=== PATIENT | female | born 1990 | race Caucasian/White ===

== ENCOUNTER 2017-02-18 21:03 | Emergency (ER) | payer BC ==
[~2017-02-18] VITALS: Ht 167.6 cm; Wt 81.9 kg
[~2017-02-18 21:03] MED LIST: BCPILLS PO
[2017-02-18 21:05] VITALS: TEMP 36.9; Ht 167.6 cm; Wt 81.9 kg
[2017-02-18] MEDS ORDERED: MEDR150I (21:30)
[2017-02-18] MEDS ORDERED: METOCLOPRAMIDE HCL INJ 5 MG/ML 2 ML VIAL IV STA (21:48)
[2017-02-18] MEDS ORDERED: DiphenhydrAMINE HCL 50 MG/ML VIAL IV STA (21:48)
[2017-02-18] MEDS ORDERED: SODIUM CHLORIDE 0.9% 1000ML 1,000 ML IV STA (21:48)
[2017-02-18 22:10] LABS: BASO % 0.3 %; BASO ABS # 0.03 K/uL (0-0.2); COMPLETE YES; EOS % 3.4 %; HEMATOCRIT 41.9 % (37-47); IG% 0.2 %; LYMPH % 32.7 %; LYMPH ABS # 3.38 K/uL (1.2-3.4); MEAN CORPUSCULAR HEMOGLOBIN 26.5 pg (25-34); MEAN CORPUSCULAR HGB CONC 32.7 g/dl (32-36); MEAN PLATELET VOLUME 8.8 fL (7.4-10.4); MONO % 9.1 %; NEUT % 54.3 %; PLATELET COUNT 330 K/uL (130-400); RED BLOOD COUNT 5.17 M/uL (4.2-5.4); WHITE BLOOD COUNT 10.33 K/uL (4.8-10.8)
--- NOTE | 2017-02-18 22:19 | DIAGNOSTIC IMAGING REPORT ---
HEAD CT NONCONTRAST CT DOSE: 537.48 mGy.cm HISTORY: PERALTA, right side numb TECHNIQUE: Multiaxial CT images of the head were performed without the use of intravenous contrast. Comparison: None. Findings: The paranasal sinuses and mastoid air cells are clear. The calvarium and skull base are intact. The ventricles and sulci are within normal limits. There is no mass, hematoma, midline shift, or acute infarct. Impression: No acute intracranial abnormality. Electronically signed by: Pedro Mcrae M.D. 02/18/2017 10:18 PM Dictated Date/Time: 02/18/2017 10:17 PM
[2017-02-18 22:26] VITALS: O2SAT 99
[2017-02-18 22:28] LABS: ALT/SGPT 35 U/L (12-78); BLOOD UREA NITROGEN 13 mg/dl (7-18); BUN/CREATININE RATIO 13.5 (10-20); CARBON DIOXIDE 26 mmol/L (21-32); CHLORIDE 108 mmol/L (98-107); CREATININE 0.95 mg/dl (0.60-1.20); GLUCOSE 91 mg/dl (70-99); MAGNESIUM 2.4 mg/dl (1.8-2.4); POTASSIUM 3.8 mmol/L (3.5-5.1); SODIUM 141 mmol/L (136-145)
[2017-02-18 22:30] LABS: CALCIUM 9.3 mg/dl (8.5-10.1)
[2017-02-18 22:39] LABS: ALKALINE PHOSPHATASE 72 U/L (45-117); AST/SGOT 15 U/L (15-37)
[2017-02-18 23:16] LABS: LYME DISEASE AB IGG NEG (NEG)
[2017-02-18 23:17] LABS: LYME DISEASE AB IGM NEG (NEG)
[2017-02-18] MEDS ORDERED: ONDANSETRON HOME PACK 4MG OD TAB PO ONE (23:45)
[2017-02-18 23:53] VITALS: BP 104/67; PULSE 72; O2SAT 99
--- NOTE | 2017-02-19 00:06 | EMERGENCY ROOM VISIT NOTE ---
History First contact with patient: 21:40 Chief Complaint: NEURO SYMPTOMS Stated Complaint: CAN'T FEEL RIGHT SIDE OF BODY Nursing Triage Summary: pt reports she has been having a headach for two weeks, no hx of migraines. reports she went to pcp thursday and was given medications for migraines and was given sumatripitin and magnesium pills. 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 pt reports numbness and tingling began on right side of body approx 19:00 tonight. denies hx of medical problems. deneis vision problems. pt alert and oriented x4. breathing regularly and independently. pt rates head pain 7/10 History of Present Illness The patient is a 26 year old female who presents to the Emergency Room with complaints of headache for the past 2 weeks described as cramping and throbbing currently 7 out of 10. Patient also complains of right arm and leg tingling since 7 PM tonight. Patient denies chest pain, dyspnea, fever, chills, vision problems, dental pain, cold symptoms, neck stiffness, vomiting, diarrhea, abdominal pain, weakness. She saw her family doctor yesterday and was given Imitrex with no relief of symptoms. No history of migraines. Headache was not sudden in onset. Patient has been underneath more stress lately. Review of Systems See HPI for pertinent positives & negatives. A total of 10 systems reviewed and were otherwise negative. Past Medical/Surgical History Medical Problems: (1) Abdominal cramping affecting (2) Surgical Problems: (1) No significant past surgical history Social History Smoking Status: Current Every Day Smoker Alcohol Use: none Marital Status: Housing Status: lives with family Occupation Status: employed Current/Historical Medications Miscellaneous Medications Medroxyprogesterone Acetate (C (Depo-Provera Contraceptiv) Allergies Coded Allergies: No Known Allergies (Unverified , 02/18/17) Physical Exam Vital Signs Date Time Temp Pulse Resp B/P Pulse Ox O2 Delivery O2 Flow Rate FiO2 02/18/17 23:53 72 18 104/67 99 02/18/17 22:31 72 02/18/17 22:26 99 Room Air 02/18/17 22:26 67 18 115/68 98 Room Air 02/18/17 22:26 99 Room Air 02/18/17 21:05 36.9 90 18 130/86 100 Room Air Physical Exam VITALS: Vitals are noted on the nurse's note and reviewed by myself. Vital signs stable. GENERAL: Pleasant female following commands without difficulty, in no acute distress, nondiaphoretic, well-developed well-nourished. SKIN: The skin was without rashes, erythema, edema, or bruising. There is no tenting of the skin. Capillary reflex less than 2 seconds. HEAD: Normocephalic atraumatic. EARS: External auditory canals clear, tympanic membranes pearly mar without erythema or effusion bilaterally. EYES: Pupils equal round and reactive to light and accommodation. Conjunctivae without injection, sclerae without icterus. Extraocular movements intact. NOSE: Patent, turbinates without inflammation or discharge. No sinus tenderness. MOUTH: Mucous membranes moist. Pharynx without erythema or exudate. Uvula midline. Airway patent. Tongue does not deviate. NECK: Supple without nuchal rigidity. No lymphadenopathy. No thyromegaly. Cervical spine is nontender. No JVD. HEART: Regular rate and rhythm without murmurs gallops or rubs. LUNGS: Clear to auscultation bilaterally without wheezes, rales or rhonchi. No dullness to percussion. No retractions or accessory muscle use. ABDOMEN: Positive bowel sounds x 4. Normal tympanic percussion. Soft, nontender, without masses or organomegaly. [place] sign negative. No guarding or rebound tenderness. MUSCULOSKELETAL: No muscle atrophy, erythema, or edema noted. NEURO: Patient was alert and oriented to person place and time. Normal sensation to light and sharp touch in all other areas. No focal neurological deficits. Right occipital nerve outflow track tender to palpation easily reproducing symptoms. Cranial nerves II through XII grossly intact. No pronator drift. Patellar exam intact. 5 out of 5 strength throughout. Subjective decrease sensation to the entire right arm and leg. Medical Decision & Procedures Laboratory Results 02/18/17 21:59 Red Blood Count 5.17, Mean Corpuscular Volume 81.0, Mean Corpuscular Hemoglobin 26.5, Mean Corpuscular Hemoglobin Concent 32.7, Mean Platelet Volume 8.8, Neutrophils (%) (Auto) 54.3, Lymphocytes (%) (Auto) 32.7, Monocytes (%) (Auto) 9.1, Eosinophils (%) (Auto) 3.4, Basophils (%) (Auto) 0.3, Neutrophils # (Auto) 5.61, Lymphocytes # (Auto) 3.38, Monocytes # (Auto) 0.94, Eosinophils # (Auto) 0.35, Basophils # (Auto) 0.03 02/18/17 21:59 Test 02/18/17 21:59 White Blood Count 10.33 K/uL (4.8-10.8) Red Blood Count 5.17 M/uL (4.2-5.4) Hemoglobin 13.7 g/dL (12.0-16.0) Hematocrit 41.9 % (37-47) Mean Corpuscular Volume 81.0 fL (80-100) Mean Corpuscular Hemoglobin 26.5 pg (25-34) Mean Corpuscular Hemoglobin Concent 32.7 g/dl (32-36) Platelet Count 330 K/uL (130-400) Mean Platelet Volume 8.8 fL (7.4-10.4) Neutrophils (%) (Auto) 54.3 % Lymphocytes (%) (Auto) 32.7 % Monocytes (%) (Auto) 9.1 % Eosinophils (%) (Auto) 3.4 % Basophils (%) (Auto) 0.3 % Neutrophils # (Auto) 5.61 K/uL (1.4-6.5) Lymphocytes # (Auto) 3.38 K/uL (1.2-3.4) Monocytes # (Auto) 0.94 K/uL (0.11-0.59) Eosinophils # (Auto) 0.35 K/uL (0-0.5) Basophils # (Auto) 0.03 K/uL (0-0.2) RDW Standard Deviation 40.4 fL (36.4-46.3) RDW Coefficient of Variation 13.6 % (11.5-14.5) Immature Granulocyte % (Auto) 0.2 % Immature Granulocyte # (Auto) 0.02 K/uL (0.00-0.02) Anion Gap 7.0 mmol/L (3-11) Est Creatinine Clear Calc Drug Dose 96.8 ml/min Estimated GFR () 95.8 Estimated GFR (Non- 82.7 BUN/Creatinine Ratio 13.5 (10-20) Calcium Level 9.3 mg/dl (8.5-10.1) Magnesium Level 2.4 mg/dl (1.8-2.4) Total Bilirubin 0.3 mg/dl (0.2-1) Direct Bilirubin < 0.1 mg/dl (0-0.2) Aspartate Amino Transf (AST/SGOT) 15 U/L (15-37) Alanine Aminotransferase (ALT/SGPT) 35 U/L (12-78) Alkaline Phosphatase 72 U/L (45-117) Total Protein 7.4 gm/dl (6.4-8.2) Albumin 4.0 gm/dl (3.4-5.0) Thyroid Stimulating Hormone (TSH) 1.660 uIu/ml (0.300-4.500) Human Chorionic Gonadotropin, Qual NEG (NEG) Lyme Disease IgG Antibody NEG (NEG) Lyme Disease IgM Antibody NEG (NEG) Medications Administered Medications (Trade) Dose Ordered Sig/Elvira Route Start Time Stop Time Status Last Admin Dose Admin Metoclopramide HCl (Reglan Inj) 10 mg NOW STAT IV 02/18/17 21:48 02/18/17 21:50 DC 02/18/17 22:22 10 MG Diphenhydramine HCl 25 mg 25 mg NOW STAT IV 02/18/17 21:48 02/18/17 21:50 DC 02/18/17 22:23 25 MG Sodium Chloride (Nss 1000ml) 1,000 ml @ 999 mls/hr Q1H1M STAT IV 02/18/17 21:48 02/18/17 22:48 DC 02/18/17 22:22 999 MLS/HR Ondansetron HCl (ZOFRAN ODT 4MG Home Pack) 1 homepack UD ONCE PO 02/18/17 23:45 02/18/17 23:46 DC 02/18/17 23:49 1 HOMEPACK ED Course Prior records/ancillary studies reviewed. Additional history obtained from family. Triage Nursing notes reviewed. The patient's history was concerning for headache and right sided tingling. Differential diagnosis: Etiologies such as migraine headache, meningitis, occipital neuralgia, lymes, electrolyte abnormality, TSH, sinusitis, CO exposure, ICH, SAH, infection, tumor , headache, sinus thrombosis, arterial dissection, as well as others were entertained. Physical examination findings: As above. Non-focal. ER treatment provided: reglan, benadryl, NSS On reassessment the patient felt better. Diagnostics interpreted by me: The labs revealed no worrisome leukocytosis or left slight afternoon around. Euthyroid. Negative Lyme test Imaging studies: CT DOSE: 537.48 mGy.cm HISTORY: PERALTA, right side numb TECHNIQUE: Multiaxial CT images of the head were performed without the use of intravenous contrast. Comparison: None. Findings: The paranasal sinuses and mastoid air cells are clear. The calvarium and skull base are intact. The ventricles and sulci are within normal limits. There is no mass, hematoma, midline shift, or acute infarct. Impression: No acute intracranial abnormality. Electronically signed by: Pedro Mcrae M.D. This appears to be consistent with headache most likely is related to stress and tension and could be occipital neuralgia also. Patient had unremarkable workup as above. She felt much better to medicated as above. She had subjective decrease sensation to her right arm and leg but had no decrease in strength. She states she is feeling better. She is advised follow-up family care doctor this week for further evaluation and workup here in the ER sooner for headache, fevers, weakness, worsening signs or symptoms or as needed. Patient was offered MRI and declined. I feel this is reasonable. She is advised to decrease her stress.. By the evaluation outlined above emergent etiologies such as meningitis, sinusitis, CO exposure, ICH, SAH, infection, temporal arteritis, tumor, sinus thrombosis, arterial dissection, as well as others were deemed relatively unlikely. The pt informed about the findings as listed above. All questions were answered and pleased with the treatment. Return instructions were outlined and the patient was discharged in stable condition. Outpatient prescription management: carlos albertofran Referral: The patient was referred back to their primary care physician for follow-up in 2 to 3 days for a recheck of the current condition. Medical Decision as above Impression Primary Impression: Headache Additional Impression: Tingling in extremities Departure Information Dispostion Home / Self-Care Condition GOOD Forms WORK / SCHOOL INSTRUCTIONS, HOME CARE DOCUMENTATION FORM, IMPORTANT VISIT INFORMATION Patient Instructions Headaches Self Care, [facility], ED Headache Tension Additional Instructions DO NOT drive, drink alcohol, operate machinery, or perform dangerous activities today. You were given medications in the ER that can affect your ability to safely function or operate a vehicle. Rest today in a quiet, peaceful, dark environment and get a full 8-10 hrs of sleep tonight. Avoid loud noises, smoke/smoking, alcohol, bright lights, stress, or physical exertion today to minimize the chance the headache may return. Continue current medications. Ibuprofen(Motrin, Advil) may be used for fever or pain. Use 600mg every six hours as needed. Take with food. Avoid using more than 2400mg in a 24 hour period. Do not use 2400mg per day for more than three consecutive days without physician direction. Prolonged inappropriate use can lead to stomach upset or ulcers. (AND/OR) Acetaminophen(Tylenol) may be used for fever or pain. Use 1000mg every six hours as needed. Avoid using more than 3000mg in a 24 hour period. Return to the ER for passing out, worsening headache, vision problems, neck stiffness/pain, fevers, vomiting, worsening of your condition, or as needed. Follow up with your primary physician and/or a neurologist in 2-3 days for a recheck of your current condition. Problem Qualifiers Primary Impression: Headache Headache type: unspecified Headache chronicity pattern: unspecified pattern Intractability: not intractable Qualified Codes: R51 - Headache
[2017-02-19 00:11] LABS: PREG INTERNAL NEGATIVE QC NEG CLEAR BACKGROUND; PREG INTERNAL POSITIVE QC POS CONTROL LINE
== END 2017-02-18 23:53 | disposition home or self-care (01) ==
LOC: C.EDB 21:05 → C.EDC 23:53
DX: R51 Headache (principal); R20.2 Paresthesia of skin; F17.200 Nicotine dependence, unspecified, uncomplicated

== ENCOUNTER 2017-02-19 12:45 | Emergency (ER) | payer BC ==
[~2017-02-19] VITALS: Ht 167.6 cm; Wt 82.9 kg
[~2017-02-19 12:45] MED LIST changes: -BCPILLS PO; +MEDR150I
[2017-02-19 12:54] VITALS: TEMP 36.7; Ht 167.6 cm; Wt 82.9 kg
[2017-02-19 14:06] LABS: BASO % 0.3 %; BASO ABS # 0.03 K/uL (0-0.2); COMPLETE YES; EOS % 3.5 %; HEMATOCRIT 41.9 % (37-47); IG% 0.3 %; LYMPH % 27.3 %; LYMPH ABS # 2.36 K/uL (1.2-3.4); MEAN CELL VOLUME 81.4 fL (80-100); MEAN CORPUSCULAR HEMOGLOBIN 26.6 pg (25-34); MEAN CORPUSCULAR HGB CONC 32.7 g/dl (32-36); MONO % 10.1 %; NEUT % 58.5 %; PLATELET COUNT 323 K/uL (130-400); RED BLOOD COUNT 5.15 M/uL (4.2-5.4); WHITE BLOOD COUNT 8.65 K/uL (4.8-10.8)
[2017-02-19 14:28] LABS: BUN/CREATININE RATIO 7.7 (10-20); CALCIUM 8.9 mg/dl (8.5-10.1); CREATININE 0.86 mg/dl (0.60-1.20); POTASSIUM 4.6 mmol/L (3.5-5.1)
[2017-02-19] MEDS ORDERED: GADAVIST IV PRN (16:00)
--- NOTE | 2017-02-19 16:00 | DIAGNOSTIC IMAGING REPORT ---
NECK MRA HISTORY: Right-sided numbness. Possible stroke. TECHNIQUE: [id number] and gadolinium-enhanced MRA of the neck was performed both before and after the intravenous administration of contrast. All measurements were calculated based on NASCET criteria. The patient was administered 8 cc of intravenous Gadavist. COMPARISON STUDY: None. FINDINGS: The aortic arch and proximal great vessels are widely patent. There is no significant stenosis, occlusion, or dissection identified within the bilateral common carotid, internal carotid, or vertebral arteries. IMPRESSION: No significant stenosis, occlusion, or dissection identified within the carotid or vertebral arteries. Electronically signed by: Chaka Bennett M.D. 02/19/2017 3:59 PM Dictated Date/Time: 02/19/2017 3:57 PM
--- NOTE | 2017-02-19 16:02 | DIAGNOSTIC IMAGING REPORT ---
Brain MRA HISTORY: eval for VASC DISEASE TECHNIQUE: 3-D [id number] MRA of the brain was performed without contrast. COMPARISON STUDY: None. FINDINGS: Visualized intracranial internal carotid arteries, distal vertebral arteries, and basilar artery are widely patent. There is no significant stenosis, occlusion, or aneurysm seen within the bilateral ACAs, MCAs, or manufacturing controller. IMPRESSION: No significant stenosis, occlusion, or aneurysm within the [place]. Electronically signed by: Pedro Mcrae M.D. 02/19/2017 4:00 PM Dictated Date/Time: 02/19/2017 4:00 PM
--- NOTE | 2017-02-19 16:03 | DIAGNOSTIC IMAGING REPORT ---
MRI OF THE BRAIN WITHOUT AND WITH IV CONTRAST CLINICAL HISTORY: Right-sided numbness and tingling. COMPARISON STUDY: Head CT February 18, 2017. TECHNIQUE: Utilizing a 1.5 Josephine magnet and dedicated coil, multiplanar, multiecho imaging of the brain was performed pre and postcontrast administration. IV administration of 8 mL of Gadavist contrast was uneventful. FINDINGS: There are no areas of restricted diffusion. No acute intracranial hemorrhage, midline shift or mass effect is present. Brain volume is normal. Ventricular system is normal. Basilar cisterns are patent. There are no extra-axial collections. Flow-voids for the major intracranial vessels are present. No intracranial mass or pathologic enhancement is present. Calvarial signal is maintained. Orbits are unremarkable. There is mild mucosal thickening of the left sphenoid sinus. There are no areas of signal abnormality to suggest demyelinating disease. IMPRESSION: 1. No acute intracranial findings. 2. No intracranial mass or pathologic enhancement. 3. Mild mucosal thickening of the left sphenoid sinus. Electronically signed by: Son Randhawa M.D. 02/19/2017 4:01 PM Dictated Date/Time: 02/19/2017 3:57 PM
[2017-02-19 17:14] VITALS: BP 123/89; PULSE 69; O2SAT 100
--- NOTE | 2017-02-19 18:52 | EMERGENCY ROOM VISIT NOTE ---
History Report prepared by Brianna: Susi Tucker Under the Supervision of: Dr. Ac Stallworth M.D. First contact with patient: 13:08 Chief Complaint: OTHER COMPLAINT Stated Complaint: NUMBNESS History of Present Illness The patient is a 26 year old female who presents to the Emergency Room with complaints of an episode on numbness that started last night. She reports that she came to the ED last night because she was completely numb on the right side of her body. She states they did a CT that came back negative. The patient states that it never went away, but that this morning it started to move to the left side of her face. She notes that she can only feel half her tongue and that the right side is much worse. She states that when she closes her left eye , her right is blurry. The patient complains of neck pain and headaches described as "head cramps." The patient notes that she was treated for migraines two weeks ago. She denies any trauma, fevers, chest pain, ear pain, shortness of breath, and abdominal pain. She states that she called a neurologist to make an appointment and that she was told she should come to the ED to get an MRI to rule out a pinched nerve. The patient notes that she has never had these symptoms before. Source of History: patient, spouse/significant other Onset: last night Position: other (global) Quality: other (global) Timing: other (episode) Associated Symptoms: + headache, + neck pain, No SOB, No abdominal pain, No chest pain, No fevers Note: The patient complains of changes in her vision. The patient denies any trauma and ear pain. Review of Systems See HPI for pertinent positives & negatives. A total of 10 systems reviewed and were otherwise negative. Past Medical & Surgical Medical Problems: (1) Abdominal cramping affecting (2) Surgical Problems: (1) No significant past surgical history Old medical records were reviewed. Nurse's notes were reviewed and I agree with. Family History No significant family history Social History Smoking Status: Current Every Day Smoker Alcohol Use: none Marital Status: Housing Status: lives with family Occupation Status: employed Current/Historical Medications Miscellaneous Medications Medroxyprogesterone Acetate (C (Depo-Provera Contraceptiv) Allergies Coded Allergies: No Known Allergies (Unverified , 02/18/17) Physical Exam Vital Signs Date Time Temp Pulse Resp B/P Pulse Ox O2 Delivery O2 Flow Rate FiO2 02/19/17 17:14 69 16 123/89 100 Room Air 02/19/17 16:15 76 18 119/75 98 Room Air 02/19/17 14:40 72 16 125/92 99 Room Air 02/19/17 12:54 36.7 91 18 134/83 100 Room Air Physical Exam General: Well developed well nourished in no acute distress, breathing comfortably on room air. Normal speech. Non-ill appearing, intermittently teary eyes, young female and no acute distress. HEENT: Normal cephalic atraumatic. Pupils are equal round and reactive to light. Extraocular movements are intact. Oropharynx is pink with moist mucous membranes. No swelling of the mouth lips or tongue. No facial droop or assymetry. Normal tympanic membranes. Neck: Supple with a midline trachea. No meningeal signs or stiffness, no JVD or bruits. No Stridor. Mild tenderness in posterior right neck. No redness or warmth. Chest: Clear to auscultation bilaterally. No wheezes or rhonchi. No increased work of breathing. Heart: regular rate and rhythm. Abdomen: Soft nontender, nondistended without rebound guarding or rigidity. Extremities: No cyanosis clubbing or edema. No calf tenderness or assymetry Spine/Back. Non tender to palpation. No CVA tenderness Skin: Good turgor without rashes. Neurologic exam: Cranial nerves two through 12 are intact. Motor and sensation are intact and symmetrical throughout. Normal gait. Negative Romberg. Difficulty with heel to toe gait, subjective decreased sensation on right arm , right leg, and face. Intact reflexes. Medical Decision & Procedures ER Provider Diagnostic Interpretation: Radiology results as stated below per my review and radiologist interpretation: MRI OF THE BRAIN WITHOUT AND WITH IV CONTRAST CLINICAL HISTORY: Right-sided numbness and tingling. COMPARISON STUDY: Head CT February 18, 2017. TECHNIQUE: Utilizing a 1.5 Josephine magnet and dedicated coil, multiplanar, multiecho imaging of the brain was performed pre and postcontrast administration. IV administration of 8 mL of Gadavist contrast was uneventful. FINDINGS: There are no areas of restricted diffusion. No acute intracranial hemorrhage, midline shift or mass effect is present. Brain volume is normal. Ventricular system is normal. Basilar cisterns are patent. There are no extra-axial collections. Flow-voids for the major intracranial vessels are present. No intracranial mass or pathologic enhancement is present. Calvarial signal is maintained. Orbits are unremarkable. There is mild mucosal thickening of the left sphenoid sinus. There are no areas of signal abnormality to suggest demyelinating disease. IMPRESSION: 1. No acute intracranial findings. 2. No intracranial mass or pathologic enhancement. 3. Mild mucosal thickening of the left sphenoid sinus. Electronically signed by: Son Randhawa M.D. 02/19/2017 4:01 PM Dictated Date/Time: 02/19/2017 3:57 PM Brain MRA HISTORY: eval for VASC DISEASE TECHNIQUE: 3-D [id number] MRA of the brain was performed without contrast. COMPARISON STUDY: None. FINDINGS: Visualized intracranial internal carotid arteries, distal vertebral arteries, and basilar artery are widely patent. There is no significant stenosis, occlusion, or aneurysm seen within the bilateral ACAs, MCAs, or heat transfer technician. IMPRESSION: No significant stenosis, occlusion, or aneurysm within the [place]. Electronically signed by: Pedro Mcrae M.D. 02/19/2017 4:00 PM Dictated Date/Time: 02/19/2017 4:00 PM NECK MRA HISTORY: Right-sided numbness. Possible stroke. TECHNIQUE: Usuc-uo-scviwn and gadolinium-enhanced MRA of the neck was performed both before and after the intravenous administration of contrast. All measurements were calculated based on NASCET criteria. The patient was administered 8 cc of intravenous Gadavist. COMPARISON STUDY: None. FINDINGS: The aortic arch and proximal great vessels are widely patent. There is no significant stenosis, occlusion, or dissection identified within the bilateral common carotid, internal carotid, or vertebral arteries. IMPRESSION: No significant stenosis, occlusion, or dissection identified within the carotid or vertebral arteries. Electronically signed by: Cahka Bennett M.D. 02/19/2017 3:59 PM Dictated Date/Time: 02/19/2017 3:57 PM Laboratory Results 02/19/17 13:50 Red Blood Count 5.15, Mean Corpuscular Volume 81.4, Mean Corpuscular Hemoglobin 26.6, Mean Corpuscular Hemoglobin Concent 32.7, Mean Platelet Volume 9.0, Neutrophils (%) (Auto) 58.5, Lymphocytes (%) (Auto) 27.3, Monocytes (%) (Auto) 10.1, Eosinophils (%) (Auto) 3.5, Basophils (%) (Auto) 0.3, Neutrophils # (Auto ) 5.06, Lymphocytes # (Auto) 2.36, Monocytes # (Auto) 0.87, Eosinophils # (Auto ) 0.30, Basophils # (Auto) 0.03 02/19/17 13:50 Test 02/19/17 13:50 White Blood Count 8.65 K/uL (4.8-10.8) Red Blood Count 5.15 M/uL (4.2-5.4) Hemoglobin 13.7 g/dL (12.0-16.0) Hematocrit 41.9 % (37-47) Mean Corpuscular Volume 81.4 fL (80-100) Mean Corpuscular Hemoglobin 26.6 pg (25-34) Mean Corpuscular Hemoglobin Concent 32.7 g/dl (32-36) Platelet Count 323 K/uL (130-400) Mean Platelet Volume 9.0 fL (7.4-10.4) Neutrophils (%) (Auto) 58.5 % Lymphocytes (%) (Auto) 27.3 % Monocytes (%) (Auto) 10.1 % Eosinophils (%) (Auto) 3.5 % Basophils (%) (Auto) 0.3 % Neutrophils # (Auto) 5.06 K/uL (1.4-6.5) Lymphocytes # (Auto) 2.36 K/uL (1.2-3.4) Monocytes # (Auto) 0.87 K/uL (0.11-0.59) Eosinophils # (Auto) 0.30 K/uL (0-0.5) Basophils # (Auto) 0.03 K/uL (0-0.2) RDW Standard Deviation 41.1 fL (36.4-46.3) RDW Coefficient of Variation 13.7 % (11.5-14.5) Immature Granulocyte % (Auto) 0.3 % Immature Granulocyte # (Auto) 0.03 K/uL (0.00-0.02) Anion Gap 5.0 mmol/L (3-11) Est Creatinine Clear Calc Drug Dose 107.5 ml/min Estimated GFR () 108.1 Estimated GFR (Non- 93.2 BUN/Creatinine Ratio 7.7 (10-20) Calcium Level 8.9 mg/dl (8.5-10.1) Laboratory studies as stated above per my review. ED Course 1308: Past medical records reviewed. The patient was evaluated in room B4, and a complete history and physical examination were performed. 1321: I discussed the patient's case with neurology to determine an appropriate course of action. They agree with doing an MRI and suggest doing an MRA as well. 1411: I reevaluated the patient and she is resting comfortably. She is waiting for an MRI. 1703: Upon reevaluation, the patient is resting comfortably. I discussed the results and treatment plan with her. The patient verbalized agreement of the treatment plan. The patient was discharged home. Medical Decision Differential diagnoses include Multiple Sclerosis, intracranial infection, anxiety electrolyte or metabolic abnormality This patient comes in as described above. She comes in after having continuing tingling sensation in her right face hand and leg also now it's on the left side her face in addition to the right. She has a normal neurologic exam with exception of some subjective numbness in these areas. She is nontoxic and non- ill-appearing. She has nothing to suggest meningitis or encephalitis. She has negative Kernig and Brudzinski signs. She has intact reflexes. She has no headache today. She is afebrile. She has no acute electrode or metabolic abdomen abnormalities. I did discuss the case with Dr. Gorman, the on-call neurologist. She recommends doing an MRI of her brain as well as MRA of the brain and neck. There were no acute abnormalities seen on the MRI/MRAs. She will be discharged home and was encouraged follow-up with her regular doctor return to ER if: worsening of symptoms, any new problems or concerns. Consults Time Called: [id number] Consulting Physician: [employer] Returned Call: 1321 I discussed the patient's case with neurology to determine an appropriate course of action. They agree with doing an MRI and suggest doing an MRA as well. Impression Primary Impression: Tingling of right upper extremity and right side of face Scribe Attestation The scribe's documentation has been prepared under my direction and personally reviewed by me in its entirety. I confirm that the note above accurately reflects all work, treatment, procedures, and medical decision making performed by me. Departure Information Dispostion Home / Self-Care Referrals No Doctor, Assigned (PCP) Forms HOME CARE DOCUMENTATION FORM, IMPORTANT VISIT INFORMATION, WORK / SCHOOL INSTRUCTIONS Patient Instructions My [facility] [employer] Additional Instructions Rest Drink plenty of fluids Return if: Worsening of symptoms, fever or chills, weakness, any new problems or concerns Follow-up with your doctor tomorrow for recheck
== END 2017-02-19 17:14 | disposition home or self-care (01) ==
LOC: C.EDB 12:46
DX: R20.2 Paresthesia of skin (principal); F17.200 Nicotine dependence, unspecified, uncomplicated

== ENCOUNTER 2019-01-17 21:07 | Observation (INO) ==
[2019-01-17] MEDS ORDERED: ONDANSETRON INJ 2 MG/ML 2 ML VIAL IV STA (21:30)
[2019-01-17] MEDS ORDERED: SODIUM CHLORIDE 0.9% 1000ML 1,000 ML IV SCH (21:30)
[2019-01-17] MEDS: MoRPHine SULFATE 4 MG/ML 1 ML CARP\\VIAL IV PRN ×4 (21:36→23:46)
[2019-01-17 21:40] LABS: Basophils # (auto) 0.02 K/uL (0-0.2); Basophils % (auto) 0.4 %; Eosinophils # (auto) 0.09 K/uL (0-0.5); Hematocrit (blood only) 38.9 % (37-47); Hemoglobin 13.8 g/dL (12.0-16.0); Lymphocytes # (auto) 1.75 K/uL (1.2-3.4); Mean Corpuscular Hgb Conc 35.5 g/dL (32-36); Mean Corpuscular Volume 80.4 fL (80-100); Mean Platelet Volume 9.4 fL (7.4-10.4); Monocytes # (auto) 0.63 K/uL (0.11-0.59); Monocytes % (auto) 13.7 %; Neutrophils # (auto) 2.11 K/uL (1.4-6.5); Neutrophils % (auto) 45.9 %; Platelet Count 261 K/uL (130-400); RDW Coefficient of Variation 13.9 % (11.5-14.5); Red Blood Count 4.84 M/uL (4.2-5.4)
--- NOTE | 2019-01-17 21:49 | XRay Report ---
SINGLE VIEW CHEST CLINICAL HISTORY: Atypical chest pain. Generalized abdominal pain. Diarrhea. FINDINGS: An AP, portable, upright chest radiograph is compared to study dated 05/01/2018. The examina tion is degraded by portable technique and patient rotation. The cardiomediastinal silhouette is unr emarkable. The lungs and pleural spaces are clear. No pneumothorax is seen. The bony thorax is grossl y intact. IMPRESSION: No active disease in the chest. Electronically signed by: Mariano Amado M.D. 01/17/2019 9:46 PM
[2019-01-17 21:57] LABS: Albumin Level 3.8 gm/dl (3.4-5.0); BUN Creatinine Ratio 14.6 (10-20); C Reactive Protein 2.1 mg/dl (0-0.29); Calcium 8.8 mg/dl (8.5-10.1); Creatinine Clr Calc Pharmacy 92.4 ml/min; Est GFR (African American) 102.2; Est GFR (Non-African American) 88.2; Potassium 3.5 mmol/L (3.5-5.1)
[2019-01-17 21:59] LABS: Pregnancy Test, Serum Negative (Negative)
[2019-01-17 22:00] LABS: Bilirubin,Total 0.3 mg/dl (0.2-1); Globulin 3.6 gm/dl (2.5-4.0); Total Protein 7.4 gm/dl (6.4-8.2)
[2019-01-17] MEDS ORDERED: IOVERSOL 100ml IV PRN (22:28)
--- NOTE | 2019-01-17 22:41 | CT Scan Report ---
CT SCAN OF THE ABDOMEN AND PELVIS WITH IV CONTRAST CLINICAL HISTORY: Pelvic pain. COMPARISON STUDY: Abdominal CT dated 04/03/2015. TECHNIQUE: Following the IV administration of 90 cc of Optiray 320, CT scan of the abdomen and pelvi s is performed from the lung bases to the proximal femora. Images are reviewed in the axial, sagittal , and coronal planes. IV contrast was administered without complication. A dose lowering technique wa s utilized adhering to the principles of ALARA. CT DOSE: 336.54 mGy.cm FINDINGS: Lung bases: The heart is normal in size and without pericardial effusion. The lung bases are clear no ting dependent atelectasis. Liver: The contrast-enhanced liver is normal in size, contour, and attenuation. There is no intrahepa tic biliary ductal dilatation. The hepatic veins and portal veins are patent. Gallbladder: Unremarkable. Spleen: Normal in size and attenuation. Pancreas: Unremarkable. Adrenal glands: Unremarkable. Kidneys: The contrast enhanced kidneys are normal in size and without hydronephrosis. The kidneys enh ance symmetrically. Abdominal vasculature: The abdominal aorta is normal in course and caliber. Bowel: No bowel obstruction is identified. There is marked gaseous distention of the colon. Liquid st ool is noted in the right colon. Pneumatosis intestinalis is noted involving the right colon. There i s no mesenteric or portal venous gas identified. No significant colonic wall thickening is observed. Mild pericolonic stranding is noted. The appendix is well-visualized and normal. Peritoneum: There is no intraperitoneal free air or abdominal ascites. There is a fat-containing umbi lical hernia. Lymphadenopathy: None. Pelvic viscera: The bladder, uterus, and adnexa are normal as imaged. Skeletal structures: No lytic or blastic lesions are seen. IMPRESSION: 1. No bowel obstruction is seen. 2. There is marked gaseous distention of the colon, with no obstructing lesion identified. There is c onstipation and liquid stool seen in the right colon, as well as mild pericolic stranding. A nonspeci fic colitis could have this appearance. 3. There is mild pneumatosis intestinalis of the right colon. Pneumatosis can be a benign finding or could potentially be seen in the setting of ischemia. Clinical correlation will be essential. 4. The mesenteric vessels appear widely patent. 5 There is no intraperitoneal free air, portal venous or mesenteric venous gas, or significant coloni c wall thickening. 6. Additional findings as above. Electronically signed by: Mariano Amado M.D. 01/17/2019 10:39 PM
[2019-01-17] MEDS ORDERED: SODIUM CHLORIDE 0.9% 1000ML 1,000 ML IV ONE (22:53)
--- NOTE | 2019-01-17 23:15 | Emergency Department Note ---
Entered by Becky Fournier acting as a scribe for Luis Fernando Denton DO History of Present Illness General Chief complaint: Abdominal Pain Stated complaint: AB PAIN, DIARRHEA, VOMITING Source: patient Mode of arrival: EMS Limitations: no limitations History of Present Illness Provider complaint: abdominal pain Onset (ago): hour(s) (today) Location: abdomen Pain Consistency: + other (persistent) Quality: + other (labor-like) Associated symptoms: + nausea/vomiting and + other (black diarrhea); no fever/chills Treatments prior to arrival: other (pepto-bismol) The patient is a 28 year old female who presents to the Emergency Room with c omplaints of a persistent abdominal pain that began this morning. The patient describes the pain as labor-like and denies any similar pain in the past. She states that the pain is located in her lower abdomen. She reports that she has been nauseous, vomiting and having multiple episodes of black diarrhea for the past 3 days. She denies any significant past medical or surgical history. She notes that the pain is exacerbated by deep breaths. She states that her last normal bowel movement was last week. She reports that her daughter is sick but not with similar symptoms. The patient reports that she last took Pepto-Bismol this morning. Home Medications Home Medications Medication Instructions Recorded Confirmed Type No Known Home Medications 01/17/19 01/17/19 History Allergies Allergy/AdvReac Type Severity Reaction Status Date / Time No Known Allergies Allergy Verified 01/17/19 21:50 Past Med/Surg History Medical History No significant past medical history Anxiety Migraine PID (acute pelvic inflammatory disease) (Resolved) (Resolved 03/03/14) Ovarian cyst Surgical History No significant past surgical history History of dental surgery Family History Father Hx of gastroesophageal reflux (GERD) Mother Hx of gastroesophageal reflux (GERD) Social History Communication Ability: Effective Beliefs That Will Affect Care: None Current Living Situation: Spouse Feels Safe at Home: Yes Safety Concerns: Feels Safe At This Time Smoking Status: Current every day smoker Hx Alcohol Use: No Hx Substance Use: No Review of Systems See HPI for pertinent positives & negatives. and A total of 10 systems reviewed and were otherwise negative Physical Exam Vital Signs Vital Signs - 24 hr 01/17/19 21:27 01/17/19 21:34 01/17/19 23:05 Temperature 37 C Temperature Source Oral Sepsis Recent Fever Within 48 Hours No Sepsis New/Unexplained Change in Mental Status No Sepsis Action Taken by Nursing No Action Required Pulse Rate 83 Pulse Rate [Right Finger] 78 Respiratory Rate 18 18 Respiratory Effort / Characteristics Non-Labored Respiratory Depth Normal Respiratory Pattern Blood Pressure 143/92 H Blood Pressure [Left Arm] Blood Pressure [Right Arm] 133/96 Blood Pressure Mean 109 Blood Pressure Mean [Left Arm] Blood Pressure Mean [Right Arm] 108 Blood Pressure Position [Left Arm] Blood Pressure Position [Right Arm] Pulse Oximetry 98 97 96 Oxygen Delivery Method Room Air Room Air Room Air 01/18/19 00:50 01/18/19 01:43 01/18/19 07:54 Temperature 36.4 C L 36.8 C Temperature Source Oral Oral Sepsis Recent Fever Within 48 Hours Sepsis New/Unexplained Change in Mental Status Sepsis Action Taken by Nursing Pulse Rate Pulse Rate [Right Finger] 69 71 67 Respiratory Rate 16 18 20 Respiratory Effort / Characteristics Non-Labored Respiratory Depth Normal Respiratory Pattern Regular Blood Pressure Blood Pressure [Left Arm] 122/74 128/77 Blood Pressure [Right Arm] 140/91 Blood Pressure Mean Blood Pressure Mean [Left Arm] 90 94 Blood Pressure Mean [Right Arm] 107 Blood Pressure Position [Left Arm] Right Lateral Lying Blood Pressure Position [Right Arm] Pulse Oximetry 96 96 95 Oxygen Delivery Method Room Air Room Air Room Air 01/18/19 16:00 Temperature 37.0 C Temperature Source Oral Sepsis Recent Fever Within 48 Hours Sepsis New/Unexplained Change in Mental Status Sepsis Action Taken by Nursing Pulse Rate Pulse Rate [Right Finger] 74 Respiratory Rate 18 Respiratory Effort / Characteristics Respiratory Depth Respiratory Pattern Blood Pressure Blood Pressure [Left Arm] Blood Pressure [Right Arm] 102/66 Blood Pressure Mean Blood Pressure Mean [Left Arm] Blood Pressure Mean [Right Arm] 78 Blood Pressure Position [Left Arm] Blood Pressure Position [Right Arm] Lying Pulse Oximetry 96 Oxygen Delivery Method Room Air GENERAL: Patient is awake, alert, and very anxious appearing walking around the room. EYES: The conjunctivae are clear. The pupils are round and reactive. EARS, NOSE, MOUTH AND THROAT: The nose is without any evidence of any deformity. Mucous membranes are moist.Tongue is midline NECK: The neck is nontender and supple. RESPIRATORY: Normal respiratory effort is noted. There is no evidence of wheezing rhonchi or rales to auscultation. CARDIOVASCULAR: Regular rate and rhythm noted. There no murmurs rubs or gallops normal S1 normal S2 GASTROINTESTINAL: The abdomen is soft. Bowel sounds are present in all quadran ts. Abdomen is diffusely tender, no guarding or rigidity. RECTAL: Black stool which was heme negative. MUSCULOSKELETAL/EXTREMITIES: There is no evidence of gross deformity. Full range of motion is noted in the hips and shoulders. SKIN: There is no obvious evidence of any rash. There are no petechiae, pallor or cyanosis noted. NEUROLOGIC: Patient is awake alert and oriented x3. [Strength is symmetric. Patellar reflexes are 2+ bilaterally.] Course 2125: The patient was evaluated in room A9B, and a complete history and physical examination were performed. 2252: I reviewed the patient's case with Dr. Rodriguez [facility] Hospitalist. He will evaluate the patient for further management. Administered Medications Dextrose/Sodium Chloride (D5w And Nss) 1,000 mls @ 125 mls/hr IV .Q8H JEANNA Stop: 02/17/19 01:42 Last Admin: 01/18/19 16:57 Dose: 125 mls/hr Documented by: [id number] Infusion: 01/18/19 16:56 Dose: 125 mls/hr Documented by: [id number] Admin: 01/18/19 08:56 Dose: 125 mls/hr Documented by: [id number] Infusion: 01/18/19 08:56 Dose: 125 mls/hr Documented by: [id number] Admin: 01/18/19 02:05 Dose: 125 mls/hr Documented by: [id number] Famotidine 20 mg/ Syringe 5 mls @ 2.5 mls/min IV BID JEANNA Stop: 02/17/19 08:59 Last Admin: 01/18/19 08:56 Dose: 2.5 mls/min Documented by: [id number] Morphine Sulfate (Morphine Sulfate) 3 mg IV Q3H PRN PRN Reason: Pain Stop: 02/01/19 01:42 Last Admin: 01/18/19 18:00 Dose: 3 mg Documented by: [id number] Admin: 01/18/19 13:50 Dose: 3 mg Documented by: [id number] Admin: 01/18/19 09:53 Dose: 3 mg Documented by: [id number] Admin: 01/18/19 05:45 Dose: 3 mg Documented by: [id number] Ondansetron HCl (Zofran) 4 mg IV Q6H PRN PRN Reason: Nausea Stop: 02/17/19 01:42 Last Admin: 01/18/19 09:53 Dose: 4 mg Documented by: [id number] Raspberry (Raspberry) 5 ml PO Q6 JEANNA Stop: 02/01/19 05:59 Last Admin: 01/18/19 18:22 Dose: 5 ml Documented by: [id number] Admin: 01/18/19 11:54 Dose: 5 ml Documented by: [id number] Admin: 01/18/19 05:46 Dose: 5 ml Documented by: [id number] Vancomycin HCl (Vancomycin Hcl) 125 mg PO Q6 JEANNA Stop: 01/28/19 05:59 Last Admin: 01/18/19 18:22 Dose: 125 mg Documented by: [id number] Admin: 01/18/19 11:54 Dose: 125 mg Documented by: [id number] Admin: 01/18/19 05:46 Dose: 125 mg Documented by: [id number] Discontinued Medications Sodium Chloride (Nss 1000ml) 1,000 mls @ 999 mls/hr IV .Q1H1M JEANNA Stop: 01/17/19 22:30 Last Infusion: 01/17/19 22:47 Dose: 0 mls/hr Documented by: [id number] Admin: 01/17/19 21:36 Dose: 999 mls/hr Documented by: [id number] Sodium Chloride (Nss 1000ml) 1,000 mls @ 999 mls/hr IV .Q1H1M ONE Stop: 01/17/19 23:53 Last Infusion: 01/18/19 00:17 Dose: 0 mls/hr Documented by: [id number] Admin: 01/17/19 23:04 Dose: 999 mls/hr Documented by: [id number] Potassium Chloride (K Tono / Wtr) 10 meq in 100 mls @ 100 mls/hr IV Q1H JEANNA Stop: 01/18/19 08:29 Last Infusion: 01/18/19 08:30 Dose: 0 mls/hr Documented by: [id number] Admin: 01/18/19 07:29 Dose: 100 mls/hr Documented by: [id number] Infusion: 01/18/19 07:29 Dose: 100 mls/hr Documented by: [id number] Admin: 01/18/19 06:30 Dose: 100 mls/hr Documented by: [id number] Ioversol (Optiray 320 100ml) 90 ml IV ONCE PRN PRN Reason: Interaction Checking Stop: 01/21/19 22:27 Last Admin: 01/17/19 22:29 Dose: 90 ml Documented by: [id number] Morphine Sulfate (Morphine Sulfate) 4 mg IV Q15M PRN PRN Reason: Pain Stop: 01/31/19 21:29 Last Admin: 01/17/19 23:46 Dose: 4 mg Documented by: [id number] Admin: 01/17/19 23:03 Dose: 4 mg Documented by: [id number] Admin: 01/17/19 22:08 Dose: 4 mg Documented by: [id number] Admin: 01/17/19 21:36 Dose: 4 mg Documented by: [id number] Ondansetron HCl (Zofran) 4 mg IV NOW STA Stop: 01/17/19 21:31 Last Admin: 01/17/19 21:35 Dose: 4 mg Documented by: [id number] Potassium Chloride (Klor-Con M20) 40 meq PO ONE ONE Stop: 01/18/19 06:31 Last Admin: 01/18/19 06:30 Dose: 40 meq Documented by: [id number] Medical Decision Making Differential Diagnosis Differential diagnosis includes: gastritis, peptic ulcer disease, GERD, gallbladder disease, pancreatitis, small bowel obstruction, acute coronary syndrome, pericarditis, ischemic bowel, irritable bowel disease, irritable bowel syndrome, appendicitis, diverticulitis, malignancy, hernia, UTI, torsion, /ectopic , perforation, trauma, and kidney stones. Home Medications Current Medication List: was personally reviewed by me Laboratory Data Attestation: I reviewed the patient's lab results. Result diagrams: 01/18/19 05:23 01/18/19 05:23 Lab Results 01/17/19 01/17/19 01/17/19 Range/Units 21:13 21:13 21:13 WBC 4.60 L (4.8-10.8) K/uL RBC 4.84 (4.2-5.4) M/uL Hgb 13.8 (12.0-16.0) g/dL Hct 38.9 (37-47) % MCV 80.4 (80-100) fL MCH 28.5 (25-34) pg MCHC 35.5 (32-36) g/dL RDW Std Deviation 41.0 (36.4-46.3) fL RDW Coeff of Anne-Marie 13.9 (11.5-14.5) % Plt Count 261 (130-400) K/uL MPV 9.4 (7.4-10.4) fL Immature Gran % (Auto) 0.0 % Neut % (Auto) 45.9 % Lymph % (Auto) 38.0 % La[place] % (Auto) 13.7 % Eos % (Auto) 2.0 % Baso % (Auto) 0.4 % Immature Gran # (Auto) 0.00 (0.00-0.02) K/uL Neut # (Auto) 2.11 (1.4-6.5) K/uL Lymph # (Auto) 1.75 (1.2-3.4) K/uL [place] # (Auto) 0.63 H (0.11-0.59) K/uL Eos # (Auto) 0.09 (0-0.5) K/uL Baso # (Auto) 0.02 (0-0.2) K/uL ESR 15 (0-21) mm/hr Sodium 142 (136-145) mmol/L Potassium 3.5 (3.5-5.1) mmol/L Chloride 111 H (98-107) mmol/L Carbon Dioxide 23 (21-32) mmol/L Anion Gap 7.0 (3-11) BUN 13 (7-18) mg/dl Creatinine 0.89 (0.6-1.2) mg/dl Est Cr Clr Drug Dosing 92.4 ml/min Est GFR ( Amer) 102.2 Est GFR (Non-Af Amer) 88.2 BUN/Creatinine Ratio 14.6 (10-20) Glucose 100 H (70-99) mg/dl Lactate (0.4-2.0) mmol/L Calcium 8.8 (8.5-10.1) mg/dl Magnesium (1.8-2.4) mg/dl Total Bilirubin 0.3 (0.2-1) mg/dl AST 23 (15-37) U/L ALT 32 (12-78) U/L Alkaline Phosphatase 57 (45-117) U/L C-Reactive Protein 2.10 H (0-0.29) mg/dl Total Protein 7.4 (6.4-8.2) gm/dl Albumin 3.8 (3.4-5.0) gm/dl Globulin 3.6 (2.5-4.0) gm/dl Albumin/Globulin Ratio 1.0 (0.9-2) Lipase 172 (73-393) U/L HCG, Qual (Negative) Urine Color Urine Appearance (Clear) Urine pH (4.5-7.5) Ur Specific [place] (1.000-1.030) Urine Protein (Negative) Urine Glucose (UA) (Negative) Urine Ketones (Negative) Urine Blood (Negative) Urine Nitrite (Negative) Urine Bilirubin (Negative) Urine Urobilinogen (Negative) Ur Leukocyte Esterase (Negative) Influenza Type A (PCR) (Neg) Influenza Type B (PCR) (Neg) 01/17/19 01/17/19 01/18/19 Range/Units 21:13 23:50 02:05 WBC (4.8-10.8) K/uL RBC (4.2-5.4) M/uL Hgb (12.0-16.0) g/dL Hct (37-47) % MCV (80-100) fL MCH (25-34) pg MCHC (32-36) g/dL RDW Std Deviation (36.4-46.3) fL RDW Coeff of Anne-Marie (11.5-14.5) % Plt Count (130-400) K/uL MPV (7.4-10.4) fL Immature Gran % (Auto) % Neut % (Auto) % Lymph % (Auto) % [place] % (Auto) % Eos % (Auto) % Baso % (Auto) % Immature Gran # (Auto) (0.00-0.02) K/uL Neut # (Auto) (1.4-6.5) K/uL Lymph # (Auto) (1.2-3.4) K/uL La[place] # (Auto) (0.11-0.59) K/uL Eos # (Auto) (0-0.5) K/uL Baso # (Auto) (0-0.2) K/uL ESR (0-21) mm/hr Sodium (136-145) mmol/L Potassium (3.5-5.1) mmol/L Chloride (98-107) mmol/L Carbon Dioxide (21-32) mmol/L Anion Gap (3-11) BUN (7-18) mg/dl Creatinine (0.6-1.2) mg/dl Est Cr Clr Drug Dosing ml/min Est GFR ( Amer) Est GFR (Non-Af Amer) BUN/Creatinine Ratio (10-20) Glucose (70-99) mg/dl Lactate (0.4-2.0) mmol/L Calcium (8.5-10.1) mg/dl Magnesium (1.8-2.4) mg/dl Total Bilirubin (0.2-1) mg/dl AST (15-37) U/L ALT (12-78) U/L Alkaline Phosphatase (45-117) U/L C-Reactive Protein (0-0.29) mg/dl Total Protein (6.4-8.2) gm/dl Albumin (3.4-5.0) gm/dl Globulin (2.5-4.0) gm/dl Albumin/Globulin Ratio (0.9-2) Lipase (73-393) U/L HCG, Qual Negative (Negative) Urine Color Yellow Urine Appearance Clear (Clear) Urine pH 5.5 (4.5-7.5) Ur Specific [place] > 1.045 H (1.000-1.030) Urine Protein Negative (Negative) Urine Glucose (UA) Negative (Negative) Urine Ketones Trace H (Negative) Urine Blood Negative (Negative) Urine Nitrite Negative (Negative) Urine Bilirubin Negative (Negative) Urine Urobilinogen Negative (Negative) Ur Leukocyte Esterase Negative (Negative) Influenza Type A (PCR) Neg for Influ A (Neg) Influenza Type B (PCR) Neg for Influ B (Neg) 01/18/19 01/18/19 01/18/19 Range/Units 05:23 05:23 05:23 WBC 7.69 (4.8-10.8) K/uL RBC 4.27 (4.2-5.4) M/uL Hgb 12.0 (12.0-16.0) g/dL Hct 34.5 L (37-47) % MCV 80.8 (80-100) fL MCH 28.1 (25-34) pg MCHC 34.8 (32-36) g/dL RDW Std Deviation 41.2 (36.4-46.3) fL RDW Coeff of Anne-Marie 13.9 (11.5-14.5) % Plt Count 224 (130-400) K/uL MPV 8.9 (7.4-10.4) fL Immature Gran % (Auto) 0.3 % Neut % (Auto) 77.5 % Lymph % (Auto) 12.0 % La[place] % (Auto) 9.8 % Eos % (Auto) 0.1 % Baso % (Auto) 0.3 % Immature Gran # (Auto) 0.02 (0.00-0.02) K/uL Neut # (Auto) 5.97 (1.4-6.5) K/uL Lymph # (Auto) 0.92 L (1.2-3.4) K/uL La[place] # (Auto) 0.75 H (0.11-0.59) K/uL Eos # (Auto) 0.01 (0-0.5) K/uL Baso # (Auto) 0.02 (0-0.2) K/uL ESR (0-21) mm/hr Sodium 140 (136-145) mmol/L Potassium 3.2 L (3.5-5.1) mmol/L Chloride 112 H (98-107) mmol/L Carbon Dioxide 23 (21-32) mmol/L Anion Gap 5.0 (3-11) BUN 8 D (7-18) mg/dl Creatinine 0.67 (0.6-1.2) mg/dl Est Cr Clr Drug Dosing 128.0 ml/min Est GFR ( Amer) 138.6 Est GFR (Non-Af Amer) 119.6 BUN/Creatinine Ratio 12.4 (10-20) Glucose 137 H (70-99) mg/dl Lactate 0.7 (0.4-2.0) mmol/L Calcium 7.8 L (8.5-10.1) mg/dl Magnesium 2.0 (1.8-2.4) mg/dl Total Bilirubin (0.2-1) mg/dl AST (15-37) U/L ALT (12-78) U/L Alkaline Phosphatase (45-117) U/L C-Reactive Protein (0-0.29) mg/dl Total Protein (6.4-8.2) gm/dl Albumin (3.4-5.0) gm/dl Globulin (2.5-4.0) gm/dl Albumin/Globulin Ratio (0.9-2) Lipase (73-393) U/L HCG, Qual (Negative) Urine Color Urine Appearance (Clear) Urine pH (4.5-7.5) Ur Specific [place] (1.000-1.030) Urine Protein (Negative) Urine Glucose (UA) (Negative) Urine Ketones (Negative) Urine Blood (Negative) Urine Nitrite (Negative) Urine Bilirubin (Negative) Urine Urobilinogen (Negative) Ur Leukocyte Esterase (Negative) Influenza Type A (PCR) (Neg) Influenza Type B (PCR) (Neg) Imaging Data Radiologist's Impression: Radiology results as stated below per my review and the radiologist's interpretation: CT SCAN OF THE ABDOMEN AND PELVIS WITH IV CONTRAST CLINICAL HISTORY: Pelvic pain. COMPARISON STUDY: Abdominal CT dated 04/03/2015. TECHNIQUE: Following the IV administration of 90 cc of Optiray 320, CT scan of the abdomen and pelvis is performed from the lung bases to the proximal femora. Images are reviewed in the axial, sagittal, and coronal planes. IV contrast was administered without complication. A dose lowering technique was utilized adhering to the principles of ALARA. CT DOSE: 336.54 mGy.cm FINDINGS: Lung bases: The heart is normal in size and without pericardial effusion. The lung bases are clear noting dependent atelectasis. Liver: The contrast-enhanced liver is normal in size, contour, and attenuation. There is no intrahepatic biliary ductal dilatation. The hepatic veins and portal veins are patent. Gallbladder: Unremarkable. Spleen: Normal in size and attenuation. Pancreas: Unremarkable. Adrenal glands: Unremarkable. Kidneys: The contrast enhanced kidneys are normal in size and without hydronephrosis. The kidneys enhance symmetrically. Abdominal vasculature: The abdominal aorta is normal in course and caliber. Bowel: No bowel obstruction is identified. There is marked gaseous distention of the colon. Liquid stool is noted in the right colon. Pneumatosis intestinalis is noted involving the right colon. There is no mesenteric or portal venous gas identified. No significant colonic wall thickening is observed. Mild pericolonic stranding is noted. The appendix is well-visualized and normal. Peritoneum: There is no intraperitoneal free air or abdominal ascites. There is a fat-containing umbilical hernia. Lymphadenopathy: None. Pelvic viscera: The bladder, uterus, and adnexa are normal as imaged. Skeletal structures: No lytic or blastic lesions are seen. IMPRESSION: 1. No bowel obstruction is seen. 2. There is marked gaseous distention of the colon, with no obstructing lesion identified. There is constipation and liquid stool seen in the right colon, as well as mild pericolic stranding. A nonspecific colitis could have this appearance. 3. There is mild pneumatosis intestinalis of the right colon. Pneumatosis can be a benign finding or could potentially be seen in the setting of ischemia. Clinical correlation will be essential. 4. The mesenteric vessels appear widely patent. 5 There is no intraperitoneal free air, portal venous or mesenteric venous gas, or significant colonic wall thickening. 6. Additional findings as above. Electronically signed by: Mariano Amado M.D. 01/17/2019 10:39 PM SINGLE VIEW CHEST CLINICAL HISTORY: Atypical chest pain. Generalized abdominal pain. Diarrhea. FINDINGS: An AP, portable, upright chest radiograph is compared to study dated 05/01/2018. The examination is degraded by portable technique and patient rotation. The cardiomediastinal silhouette is unremarkable. The lungs and pleural spaces are clear. No pneumothorax is seen. The bony thorax is grossly intact. IMPRESSION: No active disease in the chest. Electronically signed by: Mariano Amado M.D. 01/17/2019 9:46 PM Blood Pressure Blood Pressure Findings: Elevated blood pressure Blood Pressure Disposition: further management by hospitalist RAI Pacheco The patient is a 28-year-old female who presented to the emergency department for an evaluation of abdominal pain. The patient started noticing abdominal pain nausea vomiting and diarrhea over the she did have a physical exam which was consistent with very reproducible abdominal discomfort. I discussed the patient's laboratory and radiographic studies with her. She was treated with IV fluids and IV pain medication in the emergency department. I did order a stool sample however this is not been collected at this time. The patient's CAT scan did show signs of pneumatosis in the bowel. It is possible this represents C. difficile versus some other underlying colitis. Because of these findings I discussed her case with the on-call [facility] hospitalist. They have agreed to evaluate the patient in the emergency department for further management and disposition. Impression & Plan Abdominal pain, Nausea vomiting and diarrhea, Pneumatosis coli Discharge Plan Visit Data *Final* Discharge Date/Time: 01/18/19 01:26 Chief Complaint: Abdominal Pain Stated Complaint: AB PAIN, DIARRHEA, VOMITING ED Provider: Luis Fernando Denton Discharge Problem: Abdominal pain, Nausea vomiting and diarrhea, Pneumatosis coli Patient Disposition: Admitted As Inpatient Discharge Instructions Interventions: ED Discharge Assessment Last Done: 01/18/19 01:26 Discharge Problem: Abdominal pain Qualifiers: Abdominal location: generalized Qualified Code(s): R10.84 - Generalized abdominal pain The scribe's documentation has been prepared under my direction and personally reviewed by me in its entirety. I confirm that the note above accurately reflects all work, treatment, procedures, and medical decision making performed by me.
[2019-01-18 00:16] LABS: Appearance Urine Clear (Clear); Bilirubin Urine Negative (Negative); Blood Urine Negative (Negative); Color Urine Yellow; Glucose Urine UA Negative (Negative); Ketones Urine Trace (Negative); Leukocyte Esterase Urine Negative (Negative); Nitrite Urine Negative (Negative); Protein Urine Negative (Negative); Specific Gravity Urine > 1.045 (1.000-1.030); Urobilinogen Urine Negative (Negative); pH Urine 5.5 (4.5-7.5)
--- NOTE | 2019-01-18 00:36 | History & Physical Report ---
Date of Service January 18, 2019 Assessment & Plan (1) Abdominal pain: FROM GASTROENTERITIS VS C DIFF COLITIS VS ISCHEMIC COLITIS CLEARS, FLUIDS, PAIN CONTROL, IV FLUIDS MONITOR IN MEDICAL FLOOR Present on Admission?: Yes (2) Nausea vomiting and diarrhea: ANTI EMETICS PRN GASTROENTERITIS? WILL MONITOR Present on Admission?: Yes (3) Pneumatosis coli: BENIGN VS ISCHEMIC CAUSE C DIFF? AWAIT GI INPUTS Present on Admission?: Yes (4) Black stools: COMPLAINS OF BLACK DIARRHEA TODAY HB STABLE WILL FOLLOW LABS STOOL FOR HEME OCCULT PROTONIX BID. Present on Admission?: Yes History of Present Illness Chief Complaint: Abdominal pain, Diarrhea Primary Care Provider: Arabella Summers, DO 28 Y F with PMH of migraine, anxiety presents with diarrhea and abdominal pain. Patient says having diarrhea since about 3 days. Today she had black stools and also developed severe abdominal pain associated with nausea and vomiting. No fever/chills. Could not able to give stool sample in ER.Daughter is sick with cold. In November took Augmentin for sinus infection.Likes to eat.Hemodynamics stable. No chest pain or sob or cough. No headaches. Allergies Allergy/AdvReac Type Severity Reaction Status Date / Time No Known Allergies Allergy Verified 01/17/19 21:50 Home Medications Home Medications Medication Instructions Recorded Confirmed Type No Known Home Medications 01/17/19 01/17/19 History Past Med/Surg History Medical History No significant past medical history Anxiety Migraine PID (acute pelvic inflammatory disease) (Resolved) (Resolved 03/03/14) Ovarian cyst Surgical History No significant past surgical history History of dental surgery Family History Father Hx of gastroesophageal reflux (GERD) Mother Hx of gastroesophageal reflux (GERD) Social History Communication Ability: Effective Beliefs That Will Affect Care: None Current Living Situation: Spouse Feels Safe at Home: Yes Safety Concerns: Feels Safe At This Time Smoking Status: Current every day smoker Hx Alcohol Use: No Hx Substance Use: No Immunizations: PNEUMOVAX 05/20/2017 TDAP(BOOSTRIX) 02/16/2017 Review of Systems Constitutional- no fever Eyes- no acute visual changes ENT- no sinus drainage; no pharyngitis Pulmonary- no cough, no wheezing, no shortness of breath Cardiac- no chest pain, no dependent edema GI- has nausea and vomiting and diarrhea and melena, no hematochezia - no dysuria, no hematuria Musculoskeletal- no arthralgias, no myalgias Derm- no rashes Hematologic- bruises easily Neuro- no headaches, no focal neurologic symptoms Physical Exam Vital Signs (Past 24 Hours): Last Vital Signs Temp 37 C 01/17/19 21:27 Pulse 78 01/17/19 23:05 Resp 18 01/17/19 23:05 BP 133/96 01/17/19 23:05 Pulse Ox 96 01/17/19 23:05 Physical Exam: General- alert and oriented Head- atraumatic Eyes- PERRL, anicteric ENT- oropharynx clear Neck- supple, no JVD, no adenopathy, carotids +2/2, no bruits appreciated Lungs- clear to auscultation and percussion Heart- regular rhythm; no murmur, no gallop, no rub appreciated Abdomen- normal bowel sounds, soft, diffuse tender,mild guarding, no rigidity no masses Extremities- no pretibial edema, no erythema Neuro- alert, oriented x 3; non focal Skin- warm & dry Results & Data Laboratory Results Laboratory Results - last 24 hr 01/17/19 01/17/19 01/17/19 21:13 21:13 21:13 WBC 4.60 L RBC 4.84 Hgb 13.8 Hct 38.9 MCV 80.4 MCH 28.5 MCHC 35.5 RDW Std Deviation 41.0 RDW Coeff of [place] 13.9 Plt Count 261 MPV 9.4 Immature Gran % (Auto) 0.0 Neut % (Auto) 45.9 Lymph % (Auto) 38.0 [place] % (Auto) 13.7 Eos % (Auto) 2.0 Baso % (Auto) 0.4 Immature Gran # (Auto) 0.00 Neut # (Auto) 2.11 Lymph # (Auto) 1.75 [place] # (Auto) 0.63 H Eos # (Auto) 0.09 Baso # (Auto) 0.02 ESR 15 Sodium 142 Potassium 3.5 Chloride 111 H Carbon Dioxide 23 Anion Gap 7.0 BUN 13 Creatinine 0.89 Est Cr Clr Drug Dosing 92.4 Est GFR ( Amer) 102.2 Est GFR (Non-Af Amer) 88.2 BUN/Creatinine Ratio 14.6 Glucose 100 H Lactate Calcium 8.8 Magnesium Total Bilirubin 0.3 AST 23 ALT 32 Alkaline Phosphatase 57 C-Reactive Protein 2.10 H Total Protein 7.4 Albumin 3.8 Globulin 3.6 Albumin/Globulin Ratio 1.0 Lipase 172 HCG, Qual Urine Color Urine Appearance Urine pH Ur Specific [place] Urine Protein Urine Glucose (UA) Urine Ketones Urine Blood Urine Nitrite Urine Bilirubin Urine Urobilinogen Ur Leukocyte Esterase Influenza Type A (PCR) Influenza Type B (PCR) 01/17/19 01/17/19 01/18/19 21:13 23:50 02:05 WBC RBC Hgb Hct MCV MCH MCHC RDW Std Deviation RDW Coeff of [place] Plt Count MPV Immature Gran % (Auto) Neut % (Auto) Lymph % (Auto) [place] % (Auto) Eos % (Auto) Baso % (Auto) Immature Gran # (Auto) Neut # (Auto) Lymph # (Auto) [place] # (Auto) Eos # (Auto) Baso # (Auto) ESR Sodium Potassium Chloride Carbon Dioxide Anion Gap BUN Creatinine Est Cr Clr Drug Dosing Est GFR ( Amer) Est GFR (Non-Af Amer) BUN/Creatinine Ratio Glucose Lactate Calcium Magnesium Total Bilirubin AST ALT Alkaline Phosphatase C-Reactive Protein Total Protein Albumin Globulin Albumin/Globulin Ratio Lipase HCG, Qual Negative Urine Color Yellow Urine Appearance Clear Urine pH 5.5 Ur Specific [place] > 1.045 H Urine Protein Negative Urine Glucose (UA) Negative Urine Ketones Trace H Urine Blood Negative Urine Nitrite Negative Urine Bilirubin Negative Urine Urobilinogen Negative Ur Leukocyte Esterase Negative Influenza Type A (PCR) Neg for Influ A Influenza Type B (PCR) Neg for Influ B 01/18/19 01/18/19 01/18/19 05:23 05:23 05:23 WBC 7.69 RBC 4.27 Hgb 12.0 Hct 34.5 L MCV 80.8 MCH 28.1 MCHC 34.8 RDW Std Deviation 41.2 RDW Coeff of [place] 13.9 Plt Count 224 MPV 8.9 Immature Gran % (Auto) 0.3 Neut % (Auto) 77.5 Lymph % (Auto) 12.0 [place] % (Auto) 9.8 Eos % (Auto) 0.1 Baso % (Auto) 0.3 Immature Gran # (Auto) 0.02 Neut # (Auto) 5.97 Lymph # (Auto) 0.92 L [place] # (Auto) 0.75 H Eos # (Auto) 0.01 Baso # (Auto) 0.02 ESR Sodium 140 Potassium 3.2 L Chloride 112 H Carbon Dioxide 23 Anion Gap 5.0 BUN 8 D Creatinine 0.67 Est Cr Clr Drug Dosing 128.0 Est GFR ( Amer) 138.6 Est GFR (Non-Af Amer) 119.6 BUN/Creatinine Ratio 12.4 Glucose 137 H Lactate 0.7 Calcium 7.8 L Magnesium 2.0 Total Bilirubin AST ALT Alkaline Phosphatase C-Reactive Protein Total Protein Albumin Globulin Albumin/Globulin Ratio Lipase HCG, Qual Urine Color Urine Appearance Urine pH Ur Specific [place] Urine Protein Urine Glucose (UA) Urine Ketones Urine Blood Urine Nitrite Urine Bilirubin Urine Urobilinogen Ur Leukocyte Esterase Influenza Type A (PCR) Influenza Type B (PCR) Diagnostic Findings CT ABD/PELVIS WITH IV CONTRAST: 1. No bowel obstruction is seen. 2. There is marked gaseous distention of the colon, with no obstructing lesion identified. There is constipation and liquid stool seen in the right colon, as well as mild pericolic stranding. A nonspecific colitis could have this appearance. 3. There is mild pneumatosis intestinalis of the right colon. Pneumatosis can be a benign finding or could potentially be seen in the setting of ischemia. Clinical correlation will be essential. 4. The mesenteric vessels appear widely patent. 5 There is no intraperitoneal free air, portal venous or mesenteric venous gas, or significant colonic wall thickening. CXR: No active disease in the chest. Code Status & VTE Plan Code Status FULL CODE VTE Prophylaxis Plan VTE Prophylaxis will be ordered: Yes (1) Abdominal pain Abdominal location: generalized Qualified Code(s): R10.84 - Generalized abdominal pain
[2019-01-18] MEDS ORDERED: ACETAMINOPHEN 325 MG TAB PO PRN (01:43)
[2019-01-18] MEDS ORDERED: ONDANSETRON INJ 2 MG/ML 2 ML VIAL IV PRN (01:43)
[2019-01-18] MEDS: D5W AND NSS 1,000 ML IV SCH ×3 (02:05→16:57)
[2019-01-18 02:49] LABS: Influenza A virus by PCR Neg for Influ A (Neg); Influenza B virus by PCR Neg for Influ B (Neg)
[2019-01-18 05:38] LABS: Basophils # (auto) 0.02 K/uL (0-0.2); Basophils % (auto) 0.3 %; Eosinophils # (auto) 0.01 K/uL (0-0.5); Eosinophils % (auto) 0.1 %; Hematocrit (blood only) 34.5 % (37-47); Immature Granulocytes # (auto) 0.02 K/uL (0.00-0.02); Immature Granulocytes % (auto) 0.3 %; Lymphocytes # (auto) 0.92 K/uL (1.2-3.4); Mean Corpuscular Hgb Conc 34.8 g/dL (32-36); Mean Corpuscular Volume 80.8 fL (80-100); Mean Platelet Volume 8.9 fL (7.4-10.4); Monocytes # (auto) 0.75 K/uL (0.11-0.59); Monocytes % (auto) 9.8 %; Neutrophils # (auto) 5.97 K/uL (1.4-6.5); Neutrophils % (auto) 77.5 %; Platelet Count 224 K/uL (130-400); RDW Coefficient of Variation 13.9 % (11.5-14.5); RDW Standard Deviation 41.2 fL (36.4-46.3); Red Blood Count 4.27 M/uL (4.2-5.4); White Blood Count 7.69 K/uL (4.8-10.8)
[2019-01-18] MEDS: MoRPHine SULFATE 4 MG/ML 1 ML CARP\\VIAL IV PRN ×4 (05:45→18:00)
[2019-01-18] MEDS: RASPBERRY SYRUP 5 ML UDP PO SCH ×4 (05:46→23:27)
[2019-01-18] MEDS: VANCOMYCIN HCL 125 MG/2.5ML SOLN PO SCH ×4 (05:46→23:27)
[2019-01-18 05:55] LABS: BUN Creatinine Ratio 12.4 (10-20); Calcium 7.8 mg/dl (8.5-10.1); Est GFR (African American) 138.6; Est GFR (Non-African American) 119.6; Potassium 3.2 mmol/L (3.5-5.1)
[2019-01-18] MEDS: POTASSIUM CHLORIDE / WTR 10 MEQ/100 ML PLCT IV SCH ×2 (06:30→07:29)
[2019-01-18] MEDS ORDERED: POTASSIUM CHLORIDE 20 MEQ TABCR PO ONE (06:30)
--- NOTE | 2019-01-18 08:43 | Gastrointestinal Consultation ---
Date of Consultation January 18, 2019 Assessment & Plan (1) Pneumatosis coli: Because pt with fairly soft abdomen and fairly comfortable in between the waves of severe cramping pain, doubt that this represents ischemic colitis or other surgical issue but will consult surgery for opinion. Present on Admission?: Yes (2) Black stools: These black BMs correspond with use of Pepto Bismol and HB is normal. I do not suspect melena, ulcer disease or other upper GI bleeding. Present on Admission?: Yes (3) Nausea vomiting and diarrhea: Likely a viral or less likely bacterial gastroenteritis. Please collect and return stool for C-diff and culture if diarrhea returns. Sips of clear liquids only po. Zofran prn nausea, morphine prn pain. Present on Admission?: Yes Supervising Physician Co-Signing Physician Notes I have seen and examined the patient with JOSE D Bautista whose note reflects our findings and plan. Admitted with 3 day sof nausea, vomiting, diarrhea, and abdominal pain. Had abx in november. None since. Diarrhea stopped upon admission. Stool testing not done. Still with some discomfort and vomiting. Would continue with supportive care. IVF hydration. suspect this is a viral GE. Would try to obtain stool testing with next BM. History of Present Illness Reason for Consultation: Abdominal pain, diarrhea, colitis Requesting Physician: Dr. Rodriguez Attending Physician: Jessica Givens MD History of Present Illness Ms. Katie Martinez is a 28 yr old female patient of migraines, anxiety, ovarian cysts, pelvic inflammatory disease, who presented to the ED for abdominal pain, nausea, vomiting and black BMs on Pepto Bismol. 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 Symptoms on Thursday were similar. On Thursday, she started taking Pepto Bismol and BMs have been black since then. No teetee blood in her BMs. Yesterday, she started with severe, diffuse, bilateral, lower abdomen more than upper abdomen cramping pain that comes in waves. On her way to the ED, she began with vomiting and has vomited approx 10 times since then, most recently a few minutes ago. No hematemesis. She has not had hematemesis. No fevers, chills. On arrival, CT suggested a mild pneumatosis of the right colon but vessels were widely patent and there was no bowel wall thickening or obstruction. Labs with a slight shift left but no leukocytosis. She has not had a BM since arrival. She was placed on Vanco po empirically. She has a hx of fairly recent antibiotic use in November but did not have diarrhea until the sudden onset of symptoms on Thursday01/15/19. She does not have any prior hx of gastroenterology issues and never underwent endoscopy. Allergies Allergy/AdvReac Type Severity Reaction Status Date / Time No Known Allergies Allergy Verified 01/17/19 21:50 Home Medications Home Medications Medication Instructions Recorded Confirmed Type No Known Home Medications 01/17/19 01/17/19 History Patient History Medical History No significant past medical history Anxiety Migraine PID (acute pelvic inflammatory disease) (Resolved) (Resolved 03/03/14) Ovarian cyst Surgical History No significant past surgical history History of dental surgery Family History Father Hx of gastroesophageal reflux (GERD) Mother Hx of gastroesophageal reflux (GERD) Social History Communication Ability: Effective Beliefs That Will Affect Care: None Current Living Situation: Spouse Feels Safe at Home: Yes Safety Concerns: Feels Safe At This Time Smoking Status: Current every day smoker Hx Alcohol Use: No Hx Substance Use: No Review of Systems Gen: Denies fever, weakness, weight loss. Eyes: no vision changes, no eye redness or pain Respiratory: No SOB, no cough Cardiovascular: No irregular heartbeats or chest pain Abdomen: + abdominal pain, + nausea and vomiting Ext: No edema Hem: No excessive bruising/bleeding Physical Exam Vital Signs (Past 24 Hours): Last Vital Signs Temp 36.8 C 01/18/19 07:54 Pulse 67 01/18/19 07:54 Resp 20 01/18/19 07:54 BP 128/77 01/18/19 07:54 Pulse Ox 95 01/18/19 07:54 Constitutional: WD/WN, vitals as above appears acutely distressed with abdominal pain just prior to vomiting andt appears mildly uncomfortable in between episodes Eyes: PERRL, conjunctivae normal, anicteric sclerae ENMT: external ear and nose normal, oropharynx normal Neck: trachea midline, no thyromegaly Respiratory: normal respiratory effort, lungs clear to auscultation Cardiovascular: RRR, no murmur, no edema Gastrointestinal (Abdomen): diffusely tender throughout, soft, hyperactive BS, no masses Skin: no rashes, warm and dry Neurologic: PERRL, EOMI, accommodation nl, no face palsy, no dysarthria Psychiatric: A+Ox3, euthymic affect Lymphatic: no cervical or axillary lymphadenopathy Results & Data Laboratory Results WBC 7, Hb 12, Hct 34, Platelets 224, Na 140, K 3.2, BUN 8, Cr 0.[address] abd/pelvis 01/17 IV, no oral contrast 1. No bowel obstruction is seen. 2. There is marked gaseous distention of the colon, with no obstructing lesion identified. There is constipation and liquid stool seen in the right colon, as well as mild pericolic stranding. A nonspecific colitis could have this appearance. 3. There is mild pneumatosis intestinalis of the right colon. Pneumatosis can be a benign finding or could potentially be seen in the setting of ischemia. Clinical correlation will be essential. 4. The mesenteric vessels appear widely patent. 5 There is no intraperitoneal free air, portal venous or mesenteric venous gas, or significant colonic wall thickening. 6. Additional findings as above. Medications Administered Morphine, zofran, vanco po
[2019-01-18] MEDS: FAMOTIDINE 20 MG in SYRINGE 3 ML IV SCH ×2 (08:56→21:48)
[2019-01-18] MEDS ORDERED: FAMOTIDINE 20MG/5ML IV PUSH IV SCH (09:00)
--- NOTE | 2019-01-18 10:41 | Surgery Consultation ---
Date of Consultation January 18, 2019 Assessment & Plan (1) Abdominal pain: 28 year-old female with history of abdominal pain with subsequent diarrhea, black stools after taking Pepto Bismol, and vomiting starting Thursday. CT scan showing gaseous distention of colon without obstruction however there is mild pericolonic stranding and pneumatosis coli involving right colon. No leukocytosis. Abdomen is mildly distended but soft. Tender in RLQ and RUQ on mild palpation with mild guarding however no peritonitis, rigidity, or rebound. Vitals stable, H&H wnl. Plan: No acute surgical intervention required at this time. Would recommend conservative tx with IV fluids, bowel rest may have ice chips and sips of clears, IV pain management prn, IV Zofran prn nausea/vomiting, IV Abx Encourage ambulation Stool culture Replace potassium continue medical management repeat am labs (2) Nausea vomiting and diarrhea: (3) Pneumatosis coli: There is no evidence of peritonitis, rigidity, or rebound. Abdomen is soft but tender with mild guarding in RLQ. Plan as above Dr. Campa was present during my examination and agrees with above. History of Present Illness Reason for Consultation: Pneumatosis coli, abdominal pain, vomiting, diarrhea Requesting Physician: Rehana Chavarria Attending Physician: Jessica Givens MD History of Present Illness Katie is a 28 year-old female who presented to emergency department last evening with complaint of abdominal pain, diarrhea, and vomiting that began on Thursday. States she had lower abdominal soreness that started Thursday and then noticed diarrhea. Stools loose and brown at that time. States she had persistent diarrhea on Thursday and took some Pepto Bismol in which she noticed black diarrhea on Thursday morning. States she went to work for half day and then had some vomiting on the ride to ER and has vomiting about 10 times since she has been here. Unable to keep anything down without vomiting. Denies of any teetee blood in stools, or blood with vomiting. Denies fever, chills, sweats. Never had this type of pain before. No other family members sick with similar symptoms. Daughter sick with sinus infection. No prior abdominal surgeries. Er work-up included labs which showed no leukocytosis. CT scan of abdomen and pelvis showing marked gaseous distention of the colon, with no obstructing lesion identified. There is constipation and liquid stool seen in the right colon, as well as mild pericolic stranding. A nonspecific colitis could have this appearance. There is mild pneumatosis intestinalis of the right colon. Pneumatosis can be a benign finding or could potentially be seen in the setting of ischemia. Vitals stable, afebrile, hemodynamically stable. Patient states her pain is not as bad as when she came in. Does states she still is receiving Morhpine IV as needed for pain. Still having nausea and inability to keep much down. Not having any further diarrhea. Stool sample has not been able to be collected but she is passing a lot of gas. Allergies Allergy/AdvReac Type Severity Reaction Status Date / Time No Known Allergies Allergy Verified 01/17/19 21:50 Home Medications Home Medications Medication Instructions Recorded Confirmed Type No Known Home Medications 01/17/19 01/17/19 History Patient History Medical History No significant past medical history Anxiety Migraine PID (acute pelvic inflammatory disease) (Resolved) (Resolved 03/03/14) Ovarian cyst Surgical History No significant past surgical history History of dental surgery Family History Father Hx of gastroesophageal reflux (GERD) Mother Hx of gastroesophageal reflux (GERD) Social History Communication Ability: Effective Beliefs That Will Affect Care: None Current Living Situation: Spouse Feels Safe at Home: Yes Safety Concerns: Feels Safe At This Time Smoking Status: Current every day smoker Hx Alcohol Use: No Hx Substance Use: No Physical Exam Vital Signs (Past 24 Hours): Last Vital Signs Temp 36.8 C 01/18/19 07:54 Pulse 67 01/18/19 07:54 Resp 20 01/18/19 07:54 BP 128/77 01/18/19 07:54 Pulse Ox 95 01/18/19 07:54 Constitutional: WD/WN, vitals as above no acute distress and not ill appearing Respiratory: normal respiratory effort; no respiratory distress Gastrointestinal (Abdomen): Inspection/Auscultation: + abdomen distended (mild distention) Percussion/Palpation: + abdomen tender (RUQ and RLQ on mild palpation) and abdomen soft; no guarding and abdomen not rigid NO peritonitis or rebound Skin: no rashes, warm and dry Psychiatric: A+Ox3, euthymic affect Results & Data Laboratory Results 01/18/19 01/18/19 01/18/19 Range/Units 05:23 05:23 05:23 WBC 7.69 (4.8-10.8) K/uL RBC 4.27 (4.2-5.4) M/uL Hgb 12.0 (12.0-16.0) g/dL Hct 34.5 L (37-47) % MCV 80.8 (80-100) fL MCH 28.1 (25-34) pg MCHC 34.8 (32-36) g/dL RDW Std Deviation 41.2 (36.4-46.3) fL RDW Coeff of Anne-Marie 13.9 (11.5-14.5) % Plt Count 224 (130-400) K/uL MPV 8.9 (7.4-10.4) fL Immature Gran % (Auto) 0.3 % Neut % (Auto) 77.5 % Lymph % (Auto) 12.0 % [place] % (Auto) 9.8 % Eos % (Auto) 0.1 % Baso % (Auto) 0.3 % Immature Gran # (Auto) 0.02 (0.00-0.02) K/uL Neut # (Auto) 5.97 (1.4-6.5) K/uL Lymph # (Auto) 0.92 L (1.2-3.4) K/uL [place] # (Auto) 0.75 H (0.11-0.59) K/uL Eos # (Auto) 0.01 (0-0.5) K/uL Baso # (Auto) 0.02 (0-0.2) K/uL ESR (0-21) mm/hr Sodium 140 (136-145) mmol/L Potassium 3.2 L (3.5-5.1) mmol/L Chloride 112 H (98-107) mmol/L Carbon Dioxide 23 (21-32) mmol/L Anion Gap 5.0 (3-11) BUN 8 D (7-18) mg/dl Creatinine 0.67 (0.6-1.2) mg/dl Est Cr Clr Drug Dosing 128.0 ml/min Est GFR ( Amer) 138.6 Est GFR (Non-Af Amer) 119.6 BUN/Creatinine Ratio 12.4 (10-20) Glucose 137 H (70-99) mg/dl Lactate 0.7 (0.4-2.0) mmol/L Calcium 7.8 L (8.5-10.1) mg/dl Magnesium 2.0 (1.8-2.4) mg/dl Total Bilirubin (0.2-1) mg/dl AST (15-37) U/L ALT (12-78) U/L Alkaline Phosphatase (45-117) U/L C-Reactive Protein (0-0.29) mg/dl Total Protein (6.4-8.2) gm/dl Albumin (3.4-5.0) gm/dl Globulin (2.5-4.0) gm/dl Albumin/Globulin Ratio (0.9-2) Lipase (73-393) U/L HCG, Qual (Negative) Urine Color Urine Appearance (Clear) Urine pH (4.5-7.5) Ur Specific [place] (1.000-1.030) Urine Protein (Negative) Urine Glucose (UA) (Negative) Urine Ketones (Negative) Urine Blood (Negative) Urine Nitrite (Negative) Urine Bilirubin (Negative) Urine Urobilinogen (Negative) Ur Leukocyte Esterase (Negative) Influenza Type A (PCR) (Neg) Influenza Type B (PCR) (Neg) 01/18/19 01/17/19 01/17/19 Range/Units 02:05 23:50 21:13 WBC (4.8-10.8) K/uL RBC (4.2-5.4) M/uL Hgb (12.0-16.0) g/dL Hct (37-47) % MCV (80-100) fL MCH (25-34) pg MCHC (32-36) g/dL RDW Std Deviation (36.4-46.3) fL RDW Coeff of Anne-Marie (11.5-14.5) % Plt Count (130-400) K/uL MPV (7.4-10.4) fL Immature Gran % (Auto) % Neut % (Auto) % Lymph % (Auto) % [place] % (Auto) % Eos % (Auto) % Baso % (Auto) % Immature Gran # (Auto) (0.00-0.02) K/uL Neut # (Auto) (1.4-6.5) K/uL Lymph # (Auto) (1.2-3.4) K/uL [place] # (Auto) (0.11-0.59) K/uL Eos # (Auto) (0-0.5) K/uL Baso # (Auto) (0-0.2) K/uL ESR (0-21) mm/hr Sodium (136-145) mmol/L Potassium (3.5-5.1) mmol/L Chloride (98-107) mmol/L Carbon Dioxide (21-32) mmol/L Anion Gap (3-11) BUN (7-18) mg/dl Creatinine (0.6-1.2) mg/dl Est Cr Clr Drug Dosing ml/min Est GFR ( Amer) Est GFR (Non-Af Amer) BUN/Creatinine Ratio (10-20) Glucose (70-99) mg/dl Lactate (0.4-2.0) mmol/L Calcium (8.5-10.1) mg/dl Magnesium (1.8-2.4) mg/dl Total Bilirubin (0.2-1) mg/dl AST (15-37) U/L ALT (12-78) U/L Alkaline Phosphatase (45-117) U/L C-Reactive Protein (0-0.29) mg/dl Total Protein (6.4-8.2) gm/dl Albumin (3.4-5.0) gm/dl Globulin (2.5-4.0) gm/dl Albumin/Globulin Ratio (0.9-2) Lipase (73-393) U/L HCG, Qual Negative (Negative) Urine Color Yellow Urine Appearance Clear (Clear) Urine pH 5.5 (4.5-7.5) Ur Specific [place] > 1.045 H (1.000-1.030) Urine Protein Negative (Negative) Urine Glucose (UA) Negative (Negative) Urine Ketones Trace H (Negative) Urine Blood Negative (Negative) Urine Nitrite Negative (Negative) Urine Bilirubin Negative (Negative) Urine Urobilinogen Negative (Negative) Ur Leukocyte Esterase Negative (Negative) Influenza Type A (PCR) Neg for Influ A (Neg) Influenza Type B (PCR) Neg for Influ B (Neg) 01/17/19 01/17/19 01/17/19 Range/Units 21:13 21:13 21:13 WBC 4.60 L (4.8-10.8) K/uL RBC 4.84 (4.2-5.4) M/uL Hgb 13.8 (12.0-16.0) g/dL Hct 38.9 (37-47) % MCV 80.4 (80-100) fL MCH 28.5 (25-34) pg MCHC 35.5 (32-36) g/dL RDW Std Deviation 41.0 (36.4-46.3) fL RDW Coeff of Anne-Marie 13.9 (11.5-14.5) % Plt Count 261 (130-400) K/uL MPV 9.4 (7.4-10.4) fL Immature Gran % (Auto) 0.0 % Neut % (Auto) 45.9 % Lymph % (Auto) 38.0 % [place] % (Auto) 13.7 % Eos % (Auto) 2.0 % Baso % (Auto) 0.4 % Immature Gran # (Auto) 0.00 (0.00-0.02) K/uL Neut # (Auto) 2.11 (1.4-6.5) K/uL Lymph # (Auto) 1.75 (1.2-3.4) K/uL [place] # (Auto) 0.63 H (0.11-0.59) K/uL Eos # (Auto) 0.09 (0-0.5) K/uL Baso # (Auto) 0.02 (0-0.2) K/uL ESR 15 (0-21) mm/hr Sodium 142 (136-145) mmol/L Potassium 3.5 (3.5-5.1) mmol/L Chloride 111 H (98-107) mmol/L Carbon Dioxide 23 (21-32) mmol/L Anion Gap 7.0 (3-11) BUN 13 (7-18) mg/dl Creatinine 0.89 (0.6-1.2) mg/dl Est Cr Clr Drug Dosing 92.4 ml/min Est GFR ( Amer) 102.2 Est GFR (Non-Af Amer) 88.2 BUN/Creatinine Ratio 14.6 (10-20) Glucose 100 H (70-99) mg/dl Lactate (0.4-2.0) mmol/L Calcium 8.8 (8.5-10.1) mg/dl Magnesium (1.8-2.4) mg/dl Total Bilirubin 0.3 (0.2-1) mg/dl AST 23 (15-37) U/L ALT 32 (12-78) U/L Alkaline Phosphatase 57 (45-117) U/L C-Reactive Protein 2.10 H (0-0.29) mg/dl Total Protein 7.4 (6.4-8.2) gm/dl Albumin 3.8 (3.4-5.0) gm/dl Globulin 3.6 (2.5-4.0) gm/dl Albumin/Globulin Ratio 1.0 (0.9-2) Lipase 172 (73-393) U/L HCG, Qual (Negative) Urine Color Urine Appearance (Clear) Urine pH (4.5-7.5) Ur Specific [place] (1.000-1.030) Urine Protein (Negative) Urine Glucose (UA) (Negative) Urine Ketones (Negative) Urine Blood (Negative) Urine Nitrite (Negative) Urine Bilirubin (Negative) Urine Urobilinogen (Negative) Ur Leukocyte Esterase (Negative) Influenza Type A (PCR) (Neg) Influenza Type B (PCR) (Neg) Diagnostic Findings CT SCAN OF THE ABDOMEN AND PELVIS WITH IV CONTRAST CLINICAL HISTORY: Pelvic pain. COMPARISON STUDY: Abdominal CT dated 04/03/2015. TECHNIQUE: Following the IV administration of 90 cc of Optiray 320, CT scan of the abdomen and pelvis is performed from the lung bases to the proximal femora. Images are reviewed in the axial, sagittal, and coronal planes. IV contrast was administered without complication. A dose lowering technique was utilized adher ing to the principles of ALARA. CT DOSE: 336.54 mGy.cm FINDINGS: Lung bases: The heart is normal in size and without pericardial effusion. The lung bases are clear noting dependent atelectasis. Liver: The contrast-enhanced liver is normal in size, contour, and attenuation. There is no intrahepatic biliary ductal dilatation. The hepatic veins and portal veins are patent. Gallbladder: Unremarkable. Spleen: Normal in size and attenuation. Pancreas: Unremarkable. Adrenal glands: Unremarkable. Kidneys: The contrast enhanced kidneys are normal in size and without hydronephrosis. The kidneys enhance symmetrically. Abdominal vasculature: The abdominal aorta is normal in course and caliber. Bowel: No bowel obstruction is identified. There is marked gaseous distention of the colon. Liquid stool is noted in the right colon. Pneumatosis intestinalis is noted involving the right colon. There is no mesenteric or portal venous gas identified. No significant colonic wall thickening is observed. Mild pericolonic stranding is noted. The appendix is well-visualized and normal. Peritoneum: There is no intraperitoneal free air or abdominal ascites. There is a fat-containing umbilical hernia. Lymphadenopathy: None. Pelvic viscera: The bladder, uterus, and adnexa are normal as imaged. Skeletal structures: No lytic or blastic lesions are seen. IMPRESSION: 1. No bowel obstruction is seen. 2. There is marked gaseous distention of the colon, with no obstructing lesion identified. There is constipation and liquid stool seen in the right colon, as well as mild pericolic stranding. A nonspecific colitis could have this appearance. 3. There is mild pneumatosis intestinalis of the right colon. Pneumatosis can be a benign finding or could potentially be seen in the setting of ischemia. Clinical correlation will be essential. 4. The mesenteric vessels appear widely patent. 5 There is no intraperitoneal free air, portal venous or mesenteric venous gas, or significant colonic wall thickening. 6. Additional findings as above. (1) Abdominal pain Abdominal location: generalized Qualified Code(s): R10.84 - Generalized abdominal pain
--- NOTE | 2019-01-18 18:17 | Hospitalist Progress Note ---
Date of Service January 18, 2019 Assessment & Plan (1) Abdominal pain: Presented with abdominal pain, severe cramps, CT abdomen pelvis showed numerous pneumatosis coli, possible colitis, Patient was empirically treated with p.o. vancomycin for possible C. difficile She does not have leukocytosis, afebrile, no bowel movement since admission Possible viral gastroenteritis? We will DC p.o. vancomycin as tomorrow, if there is no diarrhea Diet advanced to regular per patient's request, Continue IV fluids, order for Bentyl as needed for abdominal cramps GI following Appreciate input from surgery, no surgical intervention needed, order for KUB of abdomen and morning (2) Nausea vomiting and diarrhea: Symptoms has completely resolved, diet advanced to regular (3) Pneumatosis coli: Benign versus ischemic colitis? Patient clinically does not appear to be having active infection or bowel ischemia GI and surgery team following Continue IV fluids, patient was kept on bowel rest for last 12 hours, to have di et advanced to regular (4) Black stools: No bowel movements since admission, H&H remained stable Has been taking Pepto-Bismol prior to admission, Possible cause of black stool Continue to monitor H&H CODE STATUS: Full code DVT prophylaxis: Low risk, patient is asked to ambulate, ordered for SCD and teds Disposition: Expected to be discharged home in next 1-2 days as GI symptoms improved Subjective Júnior to complain of severe abdominal pain, Waves of cramps, no nausea vomiting, had not had any bowel movement since admission, afebrile Physical Exam Vital Signs (Past 24 Hours): Last Vital Signs Temp 37.0 C 01/18/19 16:00 Pulse 74 01/18/19 16:00 Resp 18 01/18/19 16:00 BP 102/66 01/18/19 16:00 Pulse Ox 96 01/18/19 16:00 Constitutional: WD/WN, vitals as above no acute distress and not ill appearing Eyes: PERRL, conjunctivae normal, anicteric sclerae ENMT: external ear and nose normal, oropharynx normal Neck: trachea midline, no thyromegaly Respiratory: normal respiratory effort, lungs clear to auscultation normal respiratory effort; no respiratory distress Cardiovascular: RRR, no murmur, no edema Gastrointestinal (Abdomen): Inspection/Auscultation: + abdomen distended (mild distention) Percussion/Palpation: + abdomen tender (RUQ and RLQ on mild palpation) and abdomen soft; no guarding and abdomen not rigid Skin: no rashes, warm and dry Neurologic: PERRL, EOMI, accommodation nl, no face palsy, no dysarthria Psychiatric: A+Ox3, euthymic affect Lymphatic: no cervical or axillary lymphadenopathy (1) Abdominal pain Abdominal location: generalized Qualified Code(s): R10.84 - Generalized abdominal pain
[2019-01-18] MEDS ORDERED: KETOROLAC TROMETHAMINE 15 MG/ML VIAL IV PRN (21:18)
[2019-01-18] MEDS ORDERED: DICYCLOMINE HCL 10 MG CAP PO PRN (21:21)
[2019-01-18] MEDS ORDERED: DICYCLOMINE HCL 10 MG CAP PO ONE (21:30)
[2019-01-18] MEDS: ACETAMINOPHEN 1,000 MG/100 ML VIAL IV SCH (21:51)
[2019-01-19] MEDS: D5W AND NSS 1,000 ML IV SCH (01:27)
[2019-01-19] MEDS: ACETAMINOPHEN 1,000 MG/100 ML VIAL IV SCH ×2 (05:30→14:29)
[2019-01-19] MEDS: VANCOMYCIN HCL 125 MG/2.5ML SOLN PO SCH (05:30)
[2019-01-19] MEDS: RASPBERRY SYRUP 5 ML UDP PO SCH (05:30)
[2019-01-19 07:37] LABS: BUN Creatinine Ratio 5.7 (10-20); Calcium 8.4 mg/dl (8.5-10.1); Creatinine Clr Calc Pharmacy 119.1 ml/min; Est GFR (African American) 132.1; Potassium 3.7 mmol/L (3.5-5.1)
--- NOTE | 2019-01-19 08:02 | XRay Report ---
KUB CLINICAL HISTORY: Generalized abdominal pain. FINDINGS: 3 AP supine abdominal radiographs are correlated with abdominal CT dated 01/17/2019. There is a nonobstructed abdominal bowel gas pattern. Moderate constipation is observed. No evidence of intra peritoneal free air is seen. Subtle pneumatosis of the colon seen by CT is not apparent on x-ray. The re are no abnormal abdominal calcifications. The bony structures appear intact. IMPRESSION: Moderate constipation. Electronically signed by: Mariano Amado M.D. 01/19/2019 8:01 AM
[2019-01-19] MEDS ORDERED: PANTOprazole 40 MG TAB PO SCH (09:00)
[2019-01-19] MEDS: FAMOTIDINE 20 MG in SYRINGE 3 ML IV SCH (09:04)
--- NOTE | 2019-01-19 10:54 | Gastroenterology Progress Note ---
Date of Service January 19, 2019 Assessment & Plan (1) Pneumatosis coli: 28 year old female with N/V/D admitted through the ED w/ CT concerning for pneomatosis coli. Evaluated by surgery. This am less abd pain, no furter episodes of N/V/D - Appreciate surgical recommendations - Likely a viral or less likely bacterial gastroenteritis - Please collect C-diff and culture if diarrhea returns - GI ok for sips, trial clears - zofran PRN - Would limit narcotic analgesia - Can have Bentyl 10 mg PRN pain - No indication for inpatient endoscopic evaluation Thank you for allowing us to participate in the care of this patient. Please call with any acute changes, questions or concerns. Please see addendum below with additional recommendation from my supervising physician. (2) Black stools: (3) Nausea vomiting and diarrhea: Supervising Physician Co-Signing Physician Notes Late entry: Patient was seen and examined on 01/19 with JOSE D Zurita whose note reflects our findings and plan. Subjective Pt is seen and evaluated, chart reviewed. Admitted w/ N/V/D. CT w/ ? pneumatosis intestinalsis w/o bowel ischemia. Notes her nuasea/vomiting/diarrhea resolved but has persistent abd cramping. Feels constipated,bloating this AM. Has been up ambulationg. No fever, chills, CP, SOB Stool studies: not obtained KUB: Moderate constipation. CT: No bowel obstruction is seen.There is marked gaseous distention of the colon, with no obstructing lesion identified. There is constipation and liquid stool seen in the right colon, as well as mild pericolic stranding. A nonspecific colitis could have this appearance. There is mild pneumatosis intestinalis of the right colon. Pneumatosis can be a benign finding or could potentially be seen in the setting of ischemia. Clinical correlation will be essential. The mesenteric vessels appear widely patent. There is no intraperitoneal free air, portal venous or mesenteric venous gas, or significant colonic wall thickening. EGD: none C-scopy: none Family history of colon CA: none Family history of IBD: none Constitutional: + fatigue; no fever, no chills and no weakness Respiratory: no cough, no dyspnea and no wheezing Cardiovascular: no chest pain, no radiating jaw, neck or arm pain and no syncope Gastrointestinal: + abdominal pain, + bloating, + cramping and + constipation; no belching, no early satiety, no heartburn, no nausea, no vomiting, no coffee ground emesis, no hematemesis, no pain with swallowing, no dysphagia, no excessive flatulence, no change in bowel habits, no change in stools, no diarrhea/loose stools, no fecal incontinence, no constant urge to pass stools, no melena and no problem reported Integumentary: no rash Physical Exam Vital Signs (Past 24 Hours): Last Vital Signs Temp 36.7 C 01/19/19 07:39 Pulse 80 01/19/19 07:39 Resp 18 01/19/19 07:39 BP 121/76 01/19/19 07:39 Pulse Ox 97 01/19/19 07:39 Constitutional: cooperative and comfortable; + not well nourished and no acute distress Neck: trachea midline, no thyromegaly Respiratory: normal respiratory effort, lungs clear to auscultation Cardiovascular: Rate/Rhythm: regular rate and regular rhythm; not tachycardic Gastrointestinal (Abdomen): Inspection/Auscultation: normal bowel sounds Percussion/Palpation: + abdomen tender (generalized, no rebdound or guarding) and abdomen soft; no guarding and abdomen not rigid Skin: no rashes, warm and dry Results & Data Laboratory Results 01/19/19 Range/Units 06:54 Sodium 141 (136-145) mmol/L Potassium 3.7 D (3.5-5.1) mmol/L Chloride 111 H (98-107) mmol/L Carbon Dioxide 25 (21-32) mmol/L Anion Gap 5.0 (3-11) BUN 4 L (7-18) mg/dl Creatinine 0.72 (0.6-1.2) mg/dl Est Cr Clr Drug Dosing 119.1 ml/min Est GFR ( Amer) 132.1 Est GFR (Non-Af Amer) 114.0 BUN/Creatinine Ratio 5.7 L (10-20) Glucose 99 (70-99) mg/dl Calcium 8.4 L (8.5-10.1) mg/dl
[2019-01-19] MEDS ORDERED: SOD PHOSPHATE/SOD BIPHOSPHATE ENEMA 132 ML BTL PR STA ×2 (11:30→11:55)
[2019-01-19] MEDS ORDERED: LACTULOSE SYRUP 30 GM/45 ML UDP PO STA (11:37)
--- NOTE | 2019-01-19 11:59 | Surgery Progress Note ---
Date of Service January 19, 2019 Assessment & Plan (1) Abdominal pain: 28 year-old female with complaint of abdominal pain with subsequent diarrhea, black stools after taking Pepto Bismol, and vomiting starting Thursday. CT scan showing gaseous distention of colon without obstruction however there is mild pericolonic stranding and pneumatosis coli involving right colon. No leukocytosis. Vitals stable, H&H wnl. Abdomen is soft, tender in bilateral lower quadrants. No peritonitis, rigidity, guarding, rebound. KUB today showing moderate constipation and no evidence of pneumatosis coli as seen on CT scan. Plan: No acute surgical intervention required at this time. Would recommend fleet enema given moderate constipation on KUB. IV Toradol as needed for pain Continue Bentyl as needed for cramping Continue ambulation Continue medical management Stool culture once obtained May need bowel regimen at home (Stool softener, fiber supplement and in diet, Miralax as needed) Dr. Campa has seen and examined pt, agrees with above. Subjective pain still present, not going away abdominal bloating but improved compared to presentation no nausea or vomiting tolerated regular diet passing flatus, no bowel movement yet while in hospital (diarrhea over weekend) Physical Exam Vital Signs (Past 24 Hours): Last Vital Signs Temp 36.7 C 01/19/19 07:39 Pulse 80 01/19/19 07:39 Resp 18 01/19/19 07:39 BP 121/76 01/19/19 07:39 Pulse Ox 97 01/19/19 07:39 Constitutional: WD/WN, vitals as above no acute distress and not ill appearing When entering room patient sitting up in chair at bedside, looks comfortable, not in pain. When asked to lie down in bed to do examination she was holding her abdomen after exam as if she was in a lot of pain. Respiratory: normal respiratory effort; no respiratory distress Gastrointestinal (Abdomen): Inspection/Auscultation: abdomen normal to inspection; abdomen not distended Percussion/Palpation: + abdomen tender (lower bilateral quadrants) and abdomen soft; no guarding and abdomen not rigid Skin: no rashes, warm and dry Psychiatric: Orientation: alert and oriented x 3 Mood: + irritable mood Results & Data Laboratory Results 01/19/19 Range/Units 06:54 Sodium 141 (136-145) mmol/L Potassium 3.7 D (3.5-5.1) mmol/L Chloride 111 H (98-107) mmol/L Carbon Dioxide 25 (21-32) mmol/L Anion Gap 5.0 (3-11) BUN 4 L (7-18) mg/dl Creatinine 0.72 (0.6-1.2) mg/dl Est Cr Clr Drug Dosing 119.1 ml/min Est GFR ( Amer) 132.1 Est GFR (Non-Af Amer) 114.0 BUN/Creatinine Ratio 5.7 L (10-20) Glucose 99 (70-99) mg/dl Calcium 8.4 L (8.5-10.1) mg/dl Diagnostic Findings KUB CLINICAL HISTORY: Generalized abdominal pain. FINDINGS: 3 AP supine abdominal radiographs are correlated with abdominal CT dated 01/17/2019. There is a nonobstructed abdominal bowel gas pattern. Moderate constipation is observed. No evidence of intraperitoneal free air is seen. Subtle pneumatosis of the colon seen by CT is not apparent on x-ray. There are n o abnormal abdominal calcifications. The bony structures appear intact. IMPRESSION: Moderate constipation. (1) Abdominal pain Abdominal location: generalized Qualified Code(s): R10.84 - Generalized abdominal pain
[2019-01-19] MEDS ORDERED: LACTOBACILLUS ACIDOPHILUS (FLORANEX) TAB PO SCH (12:00)
--- NOTE | 2019-01-19 17:58 | Discharge Summary ---
Date of Service January 19, 2019 Admission HPI Per Admitting Provider 28 Y F with PMH of migraine, anxiety presents with diarrhea and abdominal pain. Patient says having diarrhea since about 3 days. Today she had black stools and also developed severe abdominal pain associated with nausea and vomiting. No fever/chills. Could not able to give stool sample in ER.Daughter is sick with cold. In November took Augmentin for sinus infection.Likes to eat.Hemodynamics stable. No chest pain or sob or cough. No headaches. Principal Diagnosis Abdominal pain, viral gastroenteritis Discharge Exam Constitutional WD/WN, vitals as above no acute distress and not ill appearing Eyes PERRL, conjunctivae normal, anicteric sclerae ENMT external ear and nose normal, oropharynx normal Neck trachea midline, no thyromegaly Respiratory normal respiratory effort, lungs clear to auscultation normal respiratory effort; no respiratory distress Cardiovascular RRR, no murmur, no edema Gastrointestinal (Abdomen) Inspection/Auscultation: + abdomen distended (mild distention) Percussion/Palpation: + abdomen tender (RUQ and RLQ on mild palpation) and abdomen soft; no guarding and abdomen not rigid Skin no rashes, warm and dry Neurologic PERRL, EOMI, accommodation nl, no face palsy, no dysarthria Psychiatric A+Ox3, euthymic affect Lymphatic no cervical or axillary lymphadenopathy Discharge Data Allergies Allergy/AdvReac Type Severity Reaction Status Date / Time No Known Allergies Allergy Verified 01/17/19 21:50 Consultations 01/17/19 23:42 ED Decision to Admit Stat 01/18/19 08:00 Consult Gastroenterology Routine 01/18/19 09:34 Consult General Surgery Routine Ordered Studies 01/17/19 21:30 CT abd pelvis IV con only Stat Hospital Course (1) Abdominal pain: Presented with abdominal pain, severe cramps, CT abdomen pelvis showed numerous pneumatosis coli, possible colitis, Patient was empirically treated with p.o. vancomycin for possible C. difficile She does not have leukocytosis, afebrile, no bowel movement since admission Possible viral gastroenteritis? P.o. vancomycin discontinued Diet advanced to regular tolerating well order for Bentyl as needed for abdominal cramps GI following Appreciate input from surgery, no surgical intervention needed, KUB of abdomen : Shows diminished bowel gas, significant stool burden, suggestive of severe constipation Patient is ordered bowel regimen, enema, lactulose, GI symptoms improved Stable to be discharged home (2) Nausea vomiting and diarrhea: Symptoms has completely resolved, diet advanced to regular-tolerating well (3) Pneumatosis coli: Benign versus ischemic colitis? X-ray of KUB shows revealed resolution of bowel gas, severe constipation GI and surgery team recommendation appreciated Patient is ordered bowel regimen, Patient is asked increase fiber content: Take daily MiraLAX supplement Stable to be discharged home to (4) Black stools: Has been taking Pepto-Bismol prior to admission, Had multiple bowel movement after enema, no evidence of black stool, no evidence of GI bleed, H&H remained stable CODE STATUS: Full code DVT prophylaxis: Low risk, patient is asked to ambulate, ordered for SCD and teds Disposition: Stable to be discharged home today Total Time Total Time Spent Total Time Spent (In Minutes): Approximately 35 minutes Total Time Includes: Examination of the Patient, Discharge Planning and Medication Reconciliation Discharge Plan Discharge Items Patient Disposition: Home - Self-Care Reason For Visit: ABDOMINAL PAIN, DIARRHEA Discharge Diagnosis: Abdominal pain, viral gastroenteritis Discharge Goals: Decrease discomfort Activity: Resume your previous activity Non-emergency contact: Primary Care Provider Call non-emergency contact if: you have any medication questions Follow-up/Referrals: Arabella Summers DO [Primary Care Provider] - 01/25/19 11:05 am Diet: Regular Addtl Provider Instructions: Hospital follow-up with family physician as mentioned above Recommend stool softener (such as Colace) twice a day and Miralax 17 gm powder daily for the next three days to help with constipation. Recommend increasing fiber in your diet and fiber supplement (benefiber or metamucil) Daily walking Plenty of water daily at least 64 ounces of water daily Prescriptions: New dicyclomine 10 mg Capsule 10 mg PO Q8 PRN (Reason: Abdominal Pain) 30 Days Qty: 60 RF: 0 No Action No Known Home Medications RF: 0 Stand-Alone Forms: My [facility], Work/School Release (Inpt) Discharge Orders: Discharge Order (Routine); Ordered 01/19/19 Ordered By: Jessica Givens Admission Data Admit Date/Time: 01/18/19 00:35 Attending Provider: Jessica Givens Admit Provider: Joshua Rodriguez Primary Care Provider: Arabella Summers Other Providers: Joshua Rodriguez ; Rehana Chavarria ; Declan Simental ; Micheline Syed ; Octavio Campbell ; Aaron Romero ; Karen New ; Ting Galaviz ; Luis Fernando Ramos ; Faizan Pink ; Kristie Casey ; Darleen Spence ; Lara Julio ; Birdie Ibarra ; Darrell Rodríguez ; Dean Campa Service: Medical Other Interventions: Discharge Summary Assessment (RN) Last Done: 01/19/19 16:41 DC Date/Time DO NOT enter until pt leaves facility: 01/19/19 18:09
== END 2019-01-19 18:09 | disposition home or self-care (01) ==
LOC: 4W 21:07 → ED 21:07 → 4W 01-18 01:26
DX: R11.2 Nausea with vomiting, unspecified; K52.9 Noninfective gastroenteritis and colitis, unspecified; R19.7 Diarrhea, unspecified; K92.1 Melena; R10.84 Generalized abdominal pain; F17.200 Nicotine dependence, unspecified, uncomplicated

== ENCOUNTER 2020-11-13 20:01 | Inpatient (IN) ==
--- NOTE | 2020-11-13 23:40 | Progress Note ---
Date of Service November 13, 2020 Subjective pt presents with spotting 24hrs after intercourse FHR; CAT1 Ct 4-6mins SVE; No gross pooling. friable cervix 3-4/thick/50% effaced Pt is monitored for 2 hrs and offered the option to stay overnight pt is agreeable to staying for observation Results & Data ([facility]) Vital Signs (Past 12 Hours) Vital Signs Temp Pulse Resp BP 11/13/20 23:10 36.8 C 16 11/13/20 22:55 75 124/69 11/13/20 20:14 36.6 C 85 18 123/66 11/13/20 20:11 36.6 C 85 18 123/66
[2020-11-14] MEDS ORDERED: miSOPROStoL 50 MCG TAB PO ONE ×2 (09:29→14:24)
[2020-11-14 09:52] LABS: Hematocrit (blood only) 35.1 % (37-47); Hemoglobin 11.7 g/dL (12.0-16.0); Mean Corpuscular Hemoglobin 27.9 pg (25-34); Mean Corpuscular Hgb Conc 33.3 g/dL (32-36); Mean Corpuscular Volume 83.6 fL (80-100); Mean Platelet Volume 9.5 fL (7.4-10.4); Platelet Count 291 K/uL (130-400); RDW Coefficient of Variation 13.9 % (11.5-14.5); RDW Standard Deviation 41.9 fL (36.4-46.3); White Blood Count 9.32 K/uL (4.8-10.8)
[2020-11-14] MEDS: LACTATED RINGER'S 1,000 ML IV PRN ×2 (16:44→18:00)
[2020-11-14] MEDS ORDERED: fentaNYL citrate 100 MCG/2 ML VIAL ONE (16:46)
[2020-11-14] MEDS ORDERED: SODIUM CHLORIDE 0.9% INJ 10 ML VIAL ONE (16:46)
[2020-11-14] MEDS ORDERED: BUPIVACAINE 0.25% 30 ML VIAL ONE (16:46)
[2020-11-14] MEDS ORDERED: ePHEDrine sulfate 50 MG/ML AMP ONE (16:46)
[2020-11-14] MEDS ORDERED: fentaNYL 2MCG/ML ROPIVACAINE 1.25MG/ML 100 ML BAG EPI ONE (16:47)
--- NOTE | 2020-11-14 17:13 | Anesthesiology Consultation ---
Date of Service November 14, 2020 Assessment & Plan (1) Encounter for pre-operative examination: Chart Review Chart Review: Acceptable Risk for Labor Epidural History Height/Weight Height: 5 ft 5 in Weight: 90.718 kg Allergies Allergy/AdvReac Type Severity Reaction Status Date / Time No Known Allergies Allergy Verified 01/17/19 21:50 Medications Home Medications Medication Instructions Recorded Confirmed Last Taken ferrous sulfate [Iron (ferrous 325 mg PO DAILY 11/13/20 11/13/20 11/12/20 08:00 sulfate)] vit no.[id number] 1 tab PO DAILY 11/13/20 11/13/20 11/13/20 08:00 [ Vitamin] Active Medications Generic Name Dose Route Start Last Admin Trade Name Freq PRN Reason Stop Dose Admin Lactated Ringer's 1,000 mls @ 125 mls/hr 11/14/20 09:32 11/14/20 16:44 Lr IV 11/16/20 09:31 999 mls/hr .Q8H PRN Infusion L&D Protocol Protocol Past Medical History Medical History Anxiety Contact dermatitis Migraine No significant past medical history Ovarian cyst PID (acute pelvic inflammatory disease) (03/03/14) Past Family History Family History Father Hx of gastroesophageal reflux (GERD) Mother Hx of gastroesophageal reflux (GERD) Past Surgical History Surgical History History of dental surgery No significant past surgical history [place] teeth removed Social History Smoking Status: Current every day smoker tobacco type: cigarettes Smoking cigarettes per day: 6 Do You Dip or Chew Tobacco: No Hx Alcohol Use: No Hx Substance Use: No substance use type: does not use Physical Exam Vital Signs Last Vital Signs Temp 36.7 C 11/14/20 08:41 Pulse 71 11/14/20 15:46 Resp 18 11/14/20 13:26 BP 120/70 11/14/20 15:46 Testing Laboratory Results 11/14/20 09:43 covid test done in office on 11/08 was negative
[2020-11-14] MEDS ORDERED: NALOXONE HCL 1 MG in SODIUM CHLORIDE 0.9% 1000ML 1,000 ML IV PRN (17:43)
[2020-11-14] MEDS ORDERED: fentaNYL 2MCG/ML ROPIVACAINE 1.25MG/ML 100 ML BAG EPI PRN (17:43)
[2020-11-14] MEDS ORDERED: NALOXONE HCL 0.4 MG/1 ML VIAL/CARP IV PRN (17:43)
[2020-11-14] MEDS ORDERED: ePHEDrine sulfate 50 MG/ML AMP IV PRN (17:43)
[2020-11-14] MEDS ORDERED: ONDANSETRON INJ 2 MG/ML 2 ML VIAL IV PRN (17:43)
[2020-11-14] MEDS ORDERED: NURSING L&D Epidural Breakthrough Pain Update ONE (20:29)
[2020-11-14] MEDS: OXYTOCIN 30 UNITS/500 ML BAG IV PRN ×2 (20:50→23:13)
[2020-11-14] MEDS ORDERED: ACETAMINOPHEN W/CODEINE #3 1 TAB PO PRN (21:06)
[2020-11-14] MEDS ORDERED: ACETAMINOPHEN 325 MG TAB PO PRN (21:06)
[2020-11-14] MEDS ORDERED: SUPERCREAM 0.870% 15 GM JAR EXT PRN (21:06)
[2020-11-14] MEDS ORDERED: OXYTOCIN 30 UNITS/500 ML BAG IV PRN (21:06)
[2020-11-14] MEDS ORDERED: HYDROCORTISONE ACETATE 25 MG SUPP PR PRN (21:06)
[2020-11-14] MEDS ORDERED: DIPHTHERIA/TETANUS/PERTUSSIS 0.5 ML SYR/VIAL IM ONE (21:06)
[2020-11-14] MEDS ORDERED: oxyCODONE/ACETAMINOPHEN 5mg/325mg TAB PO PRN (21:06)
[2020-11-14] MEDS ORDERED: bisacodyL 10 MG SUPP PR PRN (21:06)
[2020-11-14] MEDS ORDERED: BENZOCAINE 20% AER SPR 82.5 GM CAN EXT PRN (21:06)
--- NOTE | 2020-11-14 21:54 | Anesthesia Procedure Note ---
Date of Service November 14, 2020 Anesthesia Post Epidural Note Vital Signs Vital Signs: Temp Pulse Resp BP Pulse Ox 36.6 C 88 18 157/88 H 96 11/14/20 19:08 11/14/20 21:41 11/14/20 21:41 11/14/20 21:41 11/14/20 20:55 Pain Intensity Lower Abdomen: Pain Intensity: 0 Notes Mental Status: alert / awake / arousable and participated in evaluation Nausea / Vomiting: adequately controlled Pain: adequately controlled Airway Patency, RR, SpO2: stable & adequate BP & HR: stable & adequate Hydration State: stable & adequate Neuraxial Anesthesia: was administered and sensory block is resolving Anesthetic Complications: no major complications apparent and Pt Satisfied with anesthetic care Epidural: Removed without complications and With tip intact Notes: Epidural site clean, dry and intact. No signs of edema, erythema or bruising at insertion site. Pt instructed to request anesthesia if she has residual lower extremity numbness or if she develops lower extremity pain or weakness, back pain or headache.
[2020-11-14] MEDS ORDERED: METHYLERGONOVINE MALEATE 0.2 MG/ML AMP IM STA (23:12)
[2020-11-14] MEDS ORDERED: CARBOPROST TROMETHAMINE 250 MCG/ML AMPUL IM ONE (23:13)
[2020-11-14] MEDS: IBUPROFEN 600 MG TAB PO PRN (23:22)
--- NOTE | 2020-11-15 04:24 | Operative Report (OR) ---
DATE OF OPERATION: 11/14/2020 Mrs. Martinez was admitted at term. Blood type is A positive, group B strep negative. She had some bloody show. I checked her, she was about 2-3 cm dilated with the head high, bloody show. She was scheduled for induction the following day. She was given the option of staying and having the induction today, which she chose. We ended up inducing her by giving her 2 tablets of p.o. Cytotec 50 mcg spaced by about 5 hours. With that, she went into labor. She got to be about 5 or 6 cm. She was given an epidural. She obtained good pain relief. She then got painful towards the end of her labor. She was topped off. She got some pain relief. I held back the cervix. She pushed down a live male via direct occiput anterior position over an intact perineum. The was suctioned through the mouth and the nose. Nuchal cord was reduced over the head. With several pushes, she dislodged the anterior shoulder and the infant was delivered without undue difficulty. Cord was allowed to pulse for a minute, clamped, cut by the father. Cord blood was taken. With IV Pitocin running, the placenta was removed intact. Inspection of the perineum revealed a first-degree laceration and this tore up the left labia majora. I approximated the vaginal mucosa out and to beyond the hymenal ring with a running 2-0 Vicryl. Then I used the same 2-0 Vicryl to run up the side of the labia and approximate the tear. Following this, hemostasis was good. I used 2 interrupted mattress sutures of Vicryl to approximate the skin edges and then a vag exam including rectovaginal examination revealed no hematoma formation or sponges in the vagina. Estimated blood loss was 500 mL The patient tolerated delivery well. I attest to the content of the Intraoperative Record and any orders documented therein. Any exception s are noted below.
[2020-11-15 06:28] LABS: Hematocrit (blood only) 30.3 % (37-47); Hemoglobin 10.2 g/dL (12.0-16.0); Mean Corpuscular Hgb Conc 33.7 g/dL (32-36); Mean Corpuscular Volume 83.2 fL (80-100); Mean Platelet Volume 9.5 fL (7.4-10.4); Platelet Count 299 K/uL (130-400); RDW Coefficient of Variation 13.7 % (11.5-14.5); Red Blood Count 3.64 M/uL (4.2-5.4); White Blood Count 13.65 K/uL (4.8-10.8)
[2020-11-15] MEDS: IBUPROFEN 600 MG TAB PO PRN ×2 (08:52→19:16)
[2020-11-15] MEDS: PRENATAL VITAMIN 1 TAB PO SCH (08:52)
[2020-11-15] MEDS: DOCUSATE SODIUM 100 MG CAP PO SCH ×2 (08:52→22:17)
--- NOTE | 2020-11-15 10:48 | Obstetrical Progress Note ---
Date of Service November 15, 2020 Assessment & Plan Admission and Anticipated Discharge Date Admission Date: November 14, 2020 Subjective PPD#1 stable passing gas tolerating diet out of bed Physical Exam Constitutional: WD/WN, vitals as above well developed and comfortable no edema neg Alycia's fundus firm tent d/c in AM Results & Data ([facility]) Vital Signs (Past 12 Hours) Vital Signs Temp Pulse Pulse Resp BP BP Pulse Ox 11/15/20 07:30 37.1 C 90 16 129/79 96 11/15/20 03:35 36.6 C 72 16 136/70 99 11/15/20 00:40 36.6 C 74 16 132/84 98 11/15/20 00:33 78 135/72 11/15/20 00:23 75 136/77 11/15/20 00:13 77 143/78 H 11/15/20 00:03 75 136/67 11/14/20 23:53 79 150/78 H 11/14/20 23:43 93 H 149/81 H 11/14/20 23:33 74 137/77 11/14/20 23:23 71 126/76 11/14/20 23:20 71 126/82 11/14/20 23:08 81 125/72 11/14/20 22:53 80 114/72 Laboratory Results 11/14/20 11/15/20 09:43 06:00 WBC 9.32 13.65 H RBC 4.20 3.64 L Hgb 11.7 L 10.2 L Hct 35.1 L 30.3 L MCV 83.6 83.2 MCH 27.9 28.0 MCHC 33.3 33.7 RDW Std Deviation 41.9 42.0 RDW Coeff of Anne-Marie 13.9 13.7 Plt Count 291 299 MPV 9.5 9.5
[2020-11-15] MEDS ORDERED: bisacodyL 5 MG TABEC PO SCH (20:00)
[2020-11-16] MEDS: IBUPROFEN 600 MG TAB PO PRN (00:56)
[2020-11-16 06:04] LABS: Hematocrit (blood only) 24.5 % (37-47); Hemoglobin 8.2 g/dL (12.0-16.0)
[2020-11-16] MEDS: DOCUSATE SODIUM 100 MG CAP PO SCH (08:04)
[2020-11-16] MEDS: PRENATAL VITAMIN 1 TAB PO SCH (08:04)
--- NOTE | 2020-11-16 09:40 | Progress Note ---
Date of Service November 16, 2020 Assessment & Plan Admission and Anticipated Discharge Date Admission Date: November 14, 2020 Review of Systems Review of Systems: All systems reviewed & are unremarkable except as noted in HPI & below Physical Exam Constitutional: WD/WN, vitals as above well developed and well nourished Eyes: PERRL, conjunctivae normal, anicteric sclerae Neck: trachea midline, no thyromegaly Respiratory: normal respiratory effort, lungs clear to auscultation Auscultation: no crackles, no rales and no wheezes Cardiovascular: RRR, no murmur, no edema Gastrointestinal (Abdomen): normal bowel sounds, soft, nontender, no hepatosplenomegaly Uterus is below umbilicus Musculoskeletal: no cyanosis or clubbing, extremities motor strength 5/5 Skin: no rashes, warm and dry Neurologic: patellar DTR's 2+ bilat, sensation intact Psychiatric: A+Ox3, euthymic affect Genitourinary: normal external appearance Results & Data ([facility]) Vital Signs (Past 12 Hours) Vital Signs Temp Pulse Resp BP Pulse Ox 11/16/20 09:33 36.7 C 81 16 115/71 98 11/16/20 07:50 36.7 C 81 16 115/71 98 11/15/20 23:50 36.8 C 81 18 129/74
--- NOTE | 2020-11-16 09:41 | Obstetrical Progress Note ---
Date of Service November 16, 2020 Assessment & Plan (1) Normal course: PPD #2 pt doing well d/c home with instructions Results & Data ([facility]) Vital Signs (Past 12 Hours) Vital Signs Temp Pulse Resp BP Pulse Ox 11/16/20 09:33 36.7 C 81 16 115/71 98 11/16/20 07:50 36.7 C 81 16 115/71 98 11/15/20 23:50 36.8 C 81 18 129/74
== END 2020-11-16 11:30 | disposition home or self-care (01) | DRG 807 ==
LOC: OPB 20:01 → 4S1 20:02 → 4S2 11-15 00:40